=== PATIENT | male | born 1985 | race Hispanic/Latino ===

== ENCOUNTER 2018-12-05 14:51 | Emergency (ER) | payer SELFPAY ==
[2018-12-05] MEDS ORDERED: IBUPROFEN 400 MG TAB ONE (15:55)
--- NOTE | 2018-12-05 16:07 | RAD REPORT ---
EXAM DESCRIPTION: RAD - Chest Pa And Lat (2 Views) - 12/05/2018 4:01 pm CLINICAL HISTORY: Cough, fever COMPARISON: April 23, 2016 TECHNIQUE: PA and lateral views of the chest were obtained. FINDINGS: The lungs are underinflated. No peripheral mass or consolidation. Lung markings are not cl early different from comparison. Heart size is normal and central vasculature is within normal limi ts. No pleural effusion or pneumothorax seen. No acute bony finding noted. No aortic abnormality. IMPRESSION: Limited shallow inspiration film without acute cardiopulmonary finding. No significant c hange from comparison.
--- NOTE | 2018-12-05 16:36 | EDPHYS ---
Physician Documentation [facility] Name: Mohsen Emery Age: 32 yrs Sex: Male : 1985 Arrival Date: 12/05/2018 Time: 14:54 Bed 24 Private MD: ED Physician Gil Quevedo HPI: 12/05 16:00 This 32 yrs old Male presents to ER via Ambulatory with complaints of Flu pm1 Symptoms. 16:00 The patient or guardian reports cough, flu symptoms, arthralgias, myalgias. Onset: The pm1 symptoms/episode began/occurred this morning. Severity of symptoms: in the emergency department the symptoms are actually worse. Modifying factors: The symptoms are alleviated by nothing, the symptoms are aggravated by nothing. Associated signs and symptoms: Pertinent positives: fever, Pertinent negatives: chest pain, diarrhea, ear ache, rhinorrhea, sore throat, vomiting. The patient has not recently seen a physician. Patient with cough for 6 months. This morning patient with fever, body aches, and cough. Historical: - Allergies: 14:57 No Known Allergies; la1 - PMHx: 14:57 None; la1 - Immunization history:: Adult Immunizations up to date. - Social history:: Smoking status: Patient/guardian denies using tobacco. - Ebola Screening: : No symptoms or risks identified at this time. ROS: 16:00 Eyes: Negative for injury, pain, redness, and discharge, ENT: Negative for injury, pm1 pain, and discharge, Neck: Negative for injury, pain, and swelling, Cardiovascular: Negative for chest pain, palpitations, and edema. 16:00 Abdomen/GI: Negative for abdominal pain, nausea, vomiting, diarrhea, and constipation, Back: Negative for injury and pain, : Negative for injury, bleeding, discharge, and swelling, MS/Extremity: Negative for injury and deformity, Skin: Negative for injury, rash, and discoloration, Neuro: Negative for headache, weakness, numbness, tingling, and seizure. 16:00 Constitutional: Positive for body aches, fever, Negative for poor PO intake. 16:00 Respiratory: Positive for cough, Negative for shortness of breath, sputum production, wheezing. Exam: 16:00 Constitutional: This is a well developed, well nourished patient who is awake, alert, pm1 and in no acute distress. Head/Face: Normocephalic, atraumatic. Eyes: Pupils equal round and reactive to light, extra-ocular motions intact. Lids and lashes normal. Conjunctiva and sclera are non-icteric and not injected. Cornea within normal limits. Periorbital areas with no swelling, redness, or edema. ENT: Nares patent. No nasal discharge, no septal abnormalities noted. Tympanic membranes are normal and external auditory canals are clear. Oropharynx with no redness, swelling, or masses, exudates, or evidence of obstruction, uvula midline. Mucous membranes moist. Neck: Trachea midline, no thyromegaly or masses palpated, and no cervical lymphadenopathy. Supple, full range of motion without nuchal rigidity, or vertebral point tenderness. No Meningismus. Chest/axilla: Normal chest wall appearance and motion. Nontender with no deformity. No lesions are appreciated. Cardiovascular: Regular rate and rhythm with a normal S1 and S2. No gallops, murmurs, or rubs. Normal PMI, no JVD. No pulse deficits. Respiratory: Lungs have equal breath sounds bilaterally, clear to auscultation and percussion. No rales, rhonchi or wheezes noted. No increased work of breathing, no retractions or nasal flaring. Abdomen/GI: Soft, non-tender, with normal bowel sounds. No distension or tympany. No guarding or rebound. No evidence of tenderness throughout. Back: No spinal tenderness. No costovertebral tenderness. Full range of motion. Skin: Warm, dry with normal turgor. Normal color with no rashes, no lesions, and no evidence of cellulitis. MS/ Extremity: Pulses equal, no cyanosis. Neurovascular intact. Full, normal range of motion. 16:00 Neuro: Orientation: is normal, Motor: is normal, Gait: is steady, at a normal pace, without difficulty. Vital Signs: 14:57 BP 150 / 86; Pulse 125; Resp 18; Temp 101.2; Pulse Ox 98% on R/A; Weight 170.1 kg; la1 Height 5 ft. 10 in. (177.80 cm); 15:51 BP 130 / 73; Pulse 108; Resp 19; Pulse Ox 98% on R/A; ca1 16:54 BP 113 / 66; Pulse 99; Resp 19; Pulse Ox 99% on R/A; ca1 14:57 Body Mass Index 53.81 (170.10 kg, 177.80 cm) la1 MDM: 15:17 Patient medically screened. pm1 16:34 Data reviewed: vital signs. Data interpreted: Pulse oximetry: on room air is 98 %. pm1 Interpretation: normal. Counseling: I had a detailed discussion with the patient and/or guardian regarding: the historical points, exam findings, and any diagnostic results supporting the discharge/admit diagnosis, lab results, radiology results, the need for outpatient follow up, to return to the emergency department if symptoms worsen or persist or if there are any questions or concerns that arise at home. 12/05 14:59 Order name: Flu; Complete Time: 15:31 eb 12/05 15:31 Order name: Chest Pa And Lat (2 Views) XRAY; Complete Time: 16:13 pm1 Administered Medications: 15:42 Drug: Ibuprofen 800 mg Route: PO; ca1 16:54 Follow up: Response: No adverse reaction; Pain is decreased ca1 Disposition: 12/06 11:55 Co-signature as Attending Physician, Gil Quevedo MD. Disposition: 12/05/18 16:35 Discharged to Home. Impression: Acute upper respiratory infection, unspecified. - Condition is Stable. - Discharge Instructions: Upper Respiratory Infection, Adult, Viral Respiratory Infection. - Prescriptions for Guaifenesin AC 10- 100 mg/5 mL Oral Liquid - take 10 milliliter by ORAL route every 4 hours As needed; 240 milliliter. - Medication Reconciliation Form, Thank You Letter, Antibiotic Education, Prescription Opioid Use form. - Follow up: Emergency Department; When: As needed; Reason: Worsening of condition. Follow up: Private Physician; When: 2 - 3 days; Reason: Recheck today's complaints, Continuance of care, Re-evaluation by your physician. - Problem is new. - Symptoms have improved. Signatures: Dispatcher [employer] EDMS Humza Miles RN RN la1 Juan David Dumont, PRINTER ASSISTANT PRINTER ASSISTANT pm1 Gil Quevedo MD MD Acob, Lyndsey RN RN ca1 Corrections: (The following items were deleted from the chart) 12/05 16:57 16:35 12/05/2018 16:35 Discharged to Home. Impression: Acute upper respiratory ca1 infection, unspecified. Condition is Stable. Forms are Medication Reconciliation Form, Thank You Letter, Antibiotic Education, Prescription Opioid Use. Follow up: Emergency Department; When: As needed; Reason: Worsening of condition. Follow up: Private Physician; When: 2 - 3 days; Reason: Recheck today's complaints, Continuance of care, Re-evaluation by your physician. Problem is new. Symptoms have improved. pm1
--- NOTE | 2018-12-05 16:36 | ER ---
Nurse's Notes [facility] Name: Mohsen Emery Age: 32 yrs Sex: Male : 1985 Arrival Date: 12/05/2018 Time: 14:54 Bed 24 Private MD: Diagnosis: Acute upper respiratory infection, unspecified Presentation: 12/05 14:56 Presenting complaint: Patient states: cough for six months, started this morning with la1 fever, body aches. Transition of care: patient was not received from another setting of care. Onset of symptoms was December 05, 2018. Risk Assessment: Do you want to hurt yourself or someone else? Patient reports no desire to harm self or others. Initial Sepsis Screen:. Care prior to arrival: None. 14:56 Method Of Arrival: Ambulatory la1 14:56 Acuity: MARCO 3 la1 15:00 Initial Sepsis Screen: Does the patient meet any 2 criteria? No. Patient's initial ca1 sepsis screen is negative. Does the patient have a suspected source of infection? Yes: Productive cough/pneumonia. Historical: - Allergies: 14:57 No Known Allergies; la1 - PMHx: 14:57 None; la1 - Immunization history:: Adult Immunizations up to date. - Social history:: Smoking status: Patient/guardian denies using tobacco. - Ebola Screening: : No symptoms or risks identified at this time. Screenin:00 Abuse screen: Denies threats or abuse. Denies injuries from another. ca1 15:00 Nutritional screening: No deficits noted. Tuberculosis screening: No symptoms or risk ca1 factors identified. Fall Risk None identified. Assessment: 15:00 General: Appears in no apparent distress. Behavior is calm, cooperative, appropriate ca1 for age. Pain: Pain currently is 5 out of 10 on a pain scale. Pain began yesterday as a headache. Neuro: Level of Consciousness is awake, alert, obeys commands. Cardiovascular: Heart tones S1 S2 present Capillary refill < 3 seconds Patient's skin is warm and dry. Respiratory: Reports shortness of breath cough that is Airway is patent Respiratory effort is even, unlabored, Respiratory pattern is regular, symmetrical, Breath sounds are clear bilaterally. GI: No signs and/or symptoms were reported involving the gastrointestinal system. : No signs and/or symptoms were reported regarding the genitourinary system. EENT: No signs and/or symptoms were reported regarding the EENT system. Derm: Skin is intact, is healthy with good turgor, Skin is pink, warm \T\ dry. Musculoskeletal: Circulation, motion, and sensation intact. Capillary refill < 3 seconds. 16:11 Reassessment: Patient appears in no apparent distress at this time. Patient and/or ca1 family updated on plan of care and expected duration. Pain level reassessed. Patient is alert, oriented x 3, equal unlabored respirations, skin warm/dry/pink. 16:54 Reassessment: Patient appears in no apparent distress at this time. Patient and/or ca1 family updated on plan of care and expected duration. Pain level reassessed. Patient is alert, oriented x 3, equal unlabored respirations, skin warm/dry/pink. Patient states feeling better. Vital Signs: 14:57 BP 150 / 86; Pulse 125; Resp 18; Temp 101.2; Pulse Ox 98% on R/A; Weight 170.1 kg; la1 Height 5 ft. 10 in. (177.80 cm); 15:51 BP 130 / 73; Pulse 108; Resp 19; Pulse Ox 98% on R/A; ca1 16:54 BP 113 / 66; Pulse 99; Resp 19; Pulse Ox 99% on R/A; ca1 14:57 Body Mass Index 53.81 (170.10 kg, 177.80 cm) la1 ED Course: 14:54 Patient arrived in ED. as 14:57 Triage completed. la1 14:57 Arm band placed on left wrist. la1 15:00 Juan David Dumont NP is [facility]. pm1 15:00 Gil Quevedo MD is Attending Physician. pm1 15:00 Patient has correct armband on for positive identification. Bed in low position. Call ca1 light in reach. Side rails up X 1. Pulse ox on. NIBP on. Warm blanket given. 15:01 Flu Sent. jp3 15:02 Flu and/or RSV swab sent to lab. jp3 15:27 Lyndsey Cowan, RN is Primary Nurse. ca1 15:57 Chest Pa And Lat (2 Views) XRAY In Process Unspecified. EDMS 16:55 No provider procedures requiring assistance completed. Patient did not have IV access ca1 during this emergency room visit. Administered Medications: 15:42 Drug: Ibuprofen 800 mg Route: PO; ca1 16:54 Follow up: Response: No adverse reaction; Pain is decreased ca1 Outcome: 16:35 Discharge ordered by MD. pm1 16:56 Discharged to home ambulatory, with significant other. ca1 16:56 Condition: stable 16:56 Discharge instructions given to patient, Instructed on discharge instructions, follow up and referral plans. medication usage, Demonstrated understanding of instructions, follow-up care, medications, Prescriptions given X 1. 16:57 Patient left the ED. ca1 Signatures: Dispatcher [employer] EDLinda Messina Lee, RN RN la1 Juan David Dumont, EDITING COMPUTER PUBLISHER EDITING COMPUTER PUBLISHER pm1 [employer] jp3 Lyndsey Cowan RN RN ca1
[2018-12-05 17:03] VITALS: TEMP 101.2
[2018-12-05 17:05] VITALS: BP 113/66; O2SAT 99
== END 2018-12-05 16:57 | disposition home or self-care (01) ==
LOC: ER 14:51
DX: J06.9 Acute upper respiratory infection, unspecified (principal)
CPT/HCPCS: 71046; 87804; 99284

== ENCOUNTER 2021-05-14 22:16 | Emergency (ER) | payer SELFPAY ==
[2021-05-14] MEDS ORDERED: IBUPROFEN 400 MG TAB ONE (23:43)
[2021-05-15 01:12] LABS: SARS-COV-2 RT PCR POSITIVE (NEGATIVE)
--- NOTE | 2021-05-15 01:57 | ER ---
Nurse's Notes [facility] Name: Mohsen Emery Age: 35 yrs Sex: Male : 1985 Arrival Date: 05/14/2021 Time: 22:19 Bed DIS11 Private MD: Diagnosis: Pneumonia due to SARS-associated coronavirus Presentation: 05/14 23:13 Chief complaint: Patient states: SOB, Cough, Fever, Diarrhea, chest pain x 1 week. kg Coronavirus screen: Client denies travel out of the [place] in the last 14 days. At this time, unable to obtain information related to travel outside the [place] Client presents with at least one sign or symptom that may indicate coronavirus-19. Standard/surgical mask placed on the client. Provider contacted for isolation considerations. Ebola Screen: Patient negative for fever greater than or equal to 101.5 degrees Fahrenheit, and additional compatible Ebola Virus Disease symptoms Patient denies exposure to infectious person. Patient denies travel to an Ebola-affected area in the 21 days before illness onset. Initial Sepsis Screen: Does the patient meet any 2 criteria? No. Patient's initial sepsis screen is negative. Does the patient have a suspected source of infection? No. Patient's initial sepsis screen is negative. Risk Assessment: Do you want to hurt yourself or someone else? Patient reports no desire to harm self or others. Onset of symptoms was May 07, 2021. 23:13 Method Of Arrival: Wheelchair kg 23:13 Acuity: MARCO 4 kg Triage Assessment: 23:15 General: Appears in no apparent distress. Behavior is calm, cooperative, appropriate kg for age, quiet. Pain: Complains of pain in chest Pain radiates to Generalized Pain currently is 7 out of 10 on a pain scale. at worst was 10 out of 10 on a pain scale. level that patient reports is acceptable is 3 out of 10 on a pain scale. Quality of pain is described as aching, pressure, throbbing. Cardiovascular: Reports chest pain, shortness of breath. GI: Reports diarrhea. Historical: - Allergies: 23:15 No Known Allergies; kg - Home Meds: 23:15 None [Active]; kg - PMHx: 23:15 None; kg - PSHx: 23:15 Appendectomy; Cholecystectomy; kg - Immunization history:: Adult Immunizations up to date, Client reports having NOT received the Covid vaccine. - Social history:: Smoking status: Patient denies any tobacco usage or history of. Patient uses alcohol, only on a social basis. Screenin:19 Abuse screen: Denies threats or abuse. Denies injuries from another. Nutritional kg screening: No deficits noted. Tuberculosis screening: No symptoms or risk factors identified. Fall Risk None identified. Assessment: 05/15 01:24 Pain: Pain began 1 hour ago. lp1 02:03 General: Appears in no apparent distress. Neuro: No deficits noted. Respiratory: lp1 Reports shortness of breath cough that is. Vital Signs: 05/14 23:13 BP 119 / 83; Pulse 114; Resp 20; Temp 102(O); Pulse Ox 96% ; Weight 172.37 kg (R); kg Height 5 ft. 10 in. (177.80 cm); Pain 04/13; 05/15 02:18 BP 106 / 88; Pulse 100; Resp 20; Temp 98.7(O); Pulse Ox 96% on R/A; lp1 05/14 23:13 Body Mass Index 54.52 (172.37 kg, 177.80 cm) kg ED Course: 05/14 22:19 Patient arrived in ED. wm 23:15 Triage completed. kg 23:15 Arm band placed on right wrist. kg 23:19 Patient has correct armband on for positive identification. kg 23:19 Patient maintains SpO2 saturation greater than 95% on room air. kg 05/15 00:29 XRAY Chest Pa And Lat (2 Views) In Process Unspecified. EDMS 01:24 Cardiac monitoring not applicable on this patient. lp1 01:24 No provider procedures requiring assistance completed. lp1 01:41 Ryan Mosqueda PA is PHCP. jr8 01:41 Magdi Rogers MD is Attending Physician. jr8 02:03 Kristen Shook, JAYME is Primary Nurse. lp1 02:18 Patient did not have IV access during this emergency room visit. lp1 Administered Medications: 05/14 23:23 Drug: Ibuprofen 800 mg Route: PO; kg 05/15 01:26 Follow up: Response: No adverse reaction lp1 Outcome: 01:56 Discharge ordered by . jr8 02:18 Discharged to home ambulatory, with family. lp1 02:18 Condition: stable 02:18 Discharge instructions given to patient, Instructed on discharge instructions, follow up and referral plans. medication usage, Demonstrated understanding of instructions, follow-up care, medications, Prescriptions given X 2. 02:18 Patient left the ED. lp1 Signatures: Dispatcher [employer] EDMS Kristen Shook RN RN lp1 Ryan Mosqueda PA PA jr8 Carolyne Calle RN RN kg Binta Ro
--- NOTE | 2021-05-15 01:57 | EDPHYS ---
Physician Documentation [facility] Name: Mohsen Emery Age: 35 yrs Sex: Male : 1985 Arrival Date: 05/14/2021 Time: 22:19 Bed DIS11 Private MD: ED Physician Magdi Rogers HPI: 05/15 01:46 This 35 yrs old Male presents to ER via Wheelchair with complaints of Chest jr8 Pain > 30 y/o, Cough, Shortness Of Breath. 01:46 The patient or guardian reports cough, that is intermittent, described as moderate, jr8 with no sputum. Onset: The symptoms/episode began/occurred gradually, 1 week(s) ago. Severity of symptoms: At their worst the symptoms were moderate, in the emergency department the symptoms are unchanged. Modifying factors: The symptoms are alleviated by nothing, the symptoms are aggravated by exertion. Associated signs and symptoms: Pertinent positives: fever, shortness of breath, chest pain with cough. The patient has not experienced similar symptoms in the past. The patient has not recently seen a physician. Historical: - Allergies: 05/14 23:15 No Known Allergies; kg - Home Meds: 23:15 None [Active]; kg - PMHx: 23:15 None; kg - PSHx: 23:15 Appendectomy; Cholecystectomy; kg - Immunization history:: Adult Immunizations up to date, Client reports having NOT received the Covid vaccine. - Social history:: Smoking status: Patient denies any tobacco usage or history of. Patient uses alcohol, only on a social basis. ROS: 05/15 01:46 Eyes: Negative for injury, pain, redness, and discharge, ENT: Negative for injury, jr8 pain, and discharge, Neck: Negative for injury, pain, and swelling, Abdomen/GI: Negative for abdominal pain, nausea, vomiting, diarrhea, and constipation, Back: Negative for injury and pain, MS/Extremity: Negative for injury and deformity, Skin: Negative for injury, rash, and discoloration, Neuro: Negative for headache, weakness, numbness, tingling, and seizure. Constitutional: Positive for fever. Cardiovascular: Positive for chest pain, with cough, Negative for edema, orthopnea, palpitations, paroxysmal nocturnal dyspnea. Respiratory: Positive for cough, shortness of breath, Negative for sputum production, wheezing. Exam: 01:46 Constitutional: This is a well developed, well nourished patient who is awake, alert, jr8 and in no acute distress. ENT: Nares patent. No nasal discharge, no septal abnormalities noted. Tympanic membranes are normal and external auditory canals are clear. Oropharynx with no redness, swelling, or masses, exudates, or evidence of obstruction, uvula midline. Mucous membranes moist. Neck: Trachea midline, no thyromegaly or masses palpated, and no cervical lymphadenopathy. Supple, full range of motion without nuchal rigidity, or vertebral point tenderness. No Meningismus. Cardiovascular: Regular rate and rhythm with a normal S1 and S2. No gallops, murmurs, or rubs. Normal PMI, no JVD. No pulse deficits. Respiratory: Lungs have equal breath sounds bilaterally, clear to auscultation and percussion. No rales, rhonchi or wheezes noted. No increased work of breathing, no retractions or nasal flaring. Abdomen/GI: Soft, non-tender, with normal bowel sounds. No distension or tympany. No guarding or rebound. No evidence of tenderness throughout. Back: No spinal tenderness. No costovertebral tenderness. Full range of motion. Skin: Warm, dry with normal turgor. Normal color with no rashes, no lesions, and no evidence of cellulitis. MS/ Extremity: Pulses equal, no cyanosis. Neurovascular intact. Full, normal range of motion. Neuro: Awake and alert, GCS 15, oriented to person, place, time, and situation. Cranial nerves II-XII grossly intact. Motor strength 5/5 in all extremities. Sensory grossly intact. Vital Signs: 05/14 23:13 BP 119 / 83; Pulse 114; Resp 20; Temp 102(O); Pulse Ox 96% ; Weight 172.37 kg (R); kg Height 5 ft. 10 in. (177.80 cm); Pain 04/13; 05/15 02:18 BP 106 / 88; Pulse 100; Resp 20; Temp 98.7(O); Pulse Ox 96% on R/A; lp1 05/14 23:13 Body Mass Index 54.52 (172.37 kg, 177.80 cm) kg MDM: 01:42 Patient medically screened. 8 01:46 Data reviewed: vital signs, nurses notes, lab test result(s), radiologic studies, plain jr8 films, and as a result, I will discharge patient. Data interpreted: Pulse oximetry: on room air is 96 %. Interpretation: normal. Counseling: I had a detailed discussion with the patient and/or guardian regarding: the historical points, exam findings, and any diagnostic results supporting the discharge/admit diagnosis, lab results, radiology results, the need for outpatient follow up, a family practitioner, to return to the emergency department if symptoms worsen or persist or if there are any questions or concerns that arise at home. ED course: Patient's vital signs improving. Patient has been 96% room air entire time without increased respiration. Will put patient on vitamin protocol along with cough medicine and ivermectin. Patient has home pulse oximetry to monitor oxygen saturation at home. Knows to come back if his condition were to worsen or he become hypoxic.. 05/14 23:18 Order name: Flu kg 05/14 23:19 Order name: XRAY Chest Pa And Lat (2 Views) kg 05/15 01:13 Order name: COVID-19/FLU A+B; Complete Time: 01:41 EDMS 05/14 23:32 Order name: EKG - Nurse/Tech; Complete Time: 01:35 kg Administered Medications: 05/14 23:23 Drug: Ibuprofen 800 mg Route: PO; kg 05/15 01:26 Follow up: Response: No adverse reaction lp1 Disposition: 07:55 Co-signature as Attending Physician, Magdi Rogers MD I agree with the assessment and nia plan of care. Disposition Summary: 05/15/21 01:56 Discharge Ordered Location: Home [facility] Problem: new jr8 Symptoms: have improved jr8 Condition: Stable jr8 Diagnosis - Pneumonia due to SARS-associated coronavirus jr8 Followup: jr8 - With: Private Physician - When: 1 week - Reason: Recheck today's complaints, Continuance of care, Re-evaluation by your physician Discharge Instructions: - Discharge Summary Sheet jr8 - COVID-19 jr8 Forms: - Medication Reconciliation Form jr8 - Thank You Letter jr8 - Antibiotic Education jr8 - Prescription Opioid Use jr8 Prescriptions: - ivermectin 3 mg Oral tablet - take 6 tablet by ORAL route once daily for 3 days; 18 tablet; Refills: 0, jr8 Product Selection Permitted - promethazine-DM 6.25-15 mg/5 mL Oral syrup - take 5 milliliter by ORAL route every 4-6 hours As needed as needed, not to jr8 exceed 30 mL in 24 hours; 100 milliliter; Refills: 0, Product Selection Permitted Signatures: Dispatcher [employer] EDMS Magdi Rogers MD MD cha Roszak, Josh, PA PA jr8 Carolyne Calle RN RN kg Kristen Shook RN lp1 Corrections: (The following items were deleted from the chart) 05/14 2354 23:19 Influenza Screen (A ordered. EDMS EDMS 23:19 CORONAVIRUS+MR.LAB.BRZ ordered. EDMS EDMS
[2021-05-15 02:24] VITALS: O2SAT 96
[2021-05-15 02:26] VITALS: BP 106/88; TEMP 98.7
--- NOTE | 2021-05-15 07:38 | RAD REPORT ---
EXAM DESCRIPTION: RAD - Chest Pa And Lat (2 Views) - 05/15/2021 12:29 am CLINICAL HISTORY: CHEST PAIN COMPARISON: Chest Pa And Lat (2 Views) dated 12/05/2018; Chest Single View dated 04/23/2016 FINDINGS: Moderate patchy bilateral airspace disease. Decreased lung volumes. The heart size is with in normal limits.No acute osseous abnormality. No significant pleural effusions or pneumothorax. IMPRESSION: Patchy bilateral airspace disease concerning for multifocal pneumonia.
--- NOTE | 2021-05-15 13:01 | EKG ---
Test Date: 2021-05-14 Test Time: 23:45:30 Leak Detector: ALANIS MEASUREMENT RESULTS: Intervals: Rate: 113 TN: 130 QRSD: 84 QT: 324 QTc: 444 [place]: P: 19 TN: 130 QRS: -26 T: 19 INTERPRETIVE STATEMENTS: Sinus tachycardia Possible Anterior infarct, age undetermined Abnormal ECG No previous ECG available for comparison Electronically Signed On 05-15-21 12:59:20 CDT by Jose Alejandro Tran
== END 2021-05-15 02:18 | disposition home or self-care (01) ==
LOC: ER 22:16
DX: U07.1 COVID-19 (principal); J12.82 Pneumonia due to coronavirus disease 2019
CPT/HCPCS: 0240U; 71046; 93005; 99284

== ENCOUNTER 2021-05-16 14:24 | Inpatient (IN) | payer SELFPAY ==
--- NOTE | 2021-05-16 16:35 | RAD REPORT ---
EXAM DESCRIPTION: RAD - Chest Single View - 05/16/2021 4:13 pm CLINICAL HISTORY: COUGH, shortness of breath COMPARISON: Two view chest May 14 TECHNIQUE: AP portable chest image was obtained 05/16/2021 4:13 pm . FINDINGS: Lung volumes are very low accentuating interstitial and alveolar pattern. Finding is not s ignificantly different from comparison. No progression from the May 14 study. Bilateral pneumonia including COVID-19 pneumonia remain primary considerations. Heart and vasculature are normal. No measurable pleural effusion and no pneumothorax. No acute bony abnormality seen. No acute aortic findings suspected. IMPRESSION: Bilateral infiltrate pattern showing no progression from May 14 imaging.
--- NOTE | 2021-05-16 18:15 | ER ---
Nurse's Notes [facility] Name: Mohsen Emery Age: 35 yrs Sex: Male : 1985 Arrival Date: 05/16/2021 Time: 14:25 Bed 16 Private MD: Diagnosis: SARS-associated coronavirus as the cause of diseases classified elsewhere;Other specified viral diseases;Other viral pneumonia Presentation: 05/16 15:00 Chief complaint: Patient states: Tested positive for COVID yesterday, symptoms started jl7 05/05/21; decreased O2 with exertion, O2 at 89-90 while sitting and down to 77 when walking. Coronavirus screen: Client denies travel out of the [place] in the last 14 days. shortness of breath, Client presents with at least one sign or symptom that may indicate coronavirus-19. Standard/surgical mask placed on the client. Provider contacted for isolation considerations. Client reports previous positive COVID test result. Ebola Screen: No symptoms or risks identified at this time. Initial Sepsis Screen: Does the patient meet any 2 criteria? No. Patient's initial sepsis screen is negative. Does the patient have a suspected source of infection? No. Patient's initial sepsis screen is negative. Risk Assessment: Do you want to hurt yourself or someone else? Patient reports no desire to harm self or others. Onset of symptoms was May 05, 2021. Care prior to arrival: None. 15:00 Method Of Arrival: Wheelchair jl7 15:00 Acuity: MARCO 3 jl7 Historical: - Allergies: 15:02 No Known Allergies; jl7 - Home Meds: 15:02 None [Active]; jl7 - PMHx: 15:02 None; jl7 - PSHx: 15:02 Appendectomy; Cholecystectomy; jl7 - Immunization history:: Adult Immunizations not up to date, Client reports having NOT received the Covid vaccine. - Social history:: Smoking status: Patient reports the use of cigarette tobacco products, denies chronic smoking, but will smoke occasionally. Assessment: 18:10 Reassessment: Dr. Iglesias in triage room assessing pt. jl7 Vital Signs: 15:00 BP 103 / 78; Pulse 115; Resp 19; Temp 100; Pulse Ox 89% on R/A; Weight 172.37 kg; jl7 Height 5 ft. 10 in. (177.80 cm); 15:04 Pulse Ox 95% on 2 lpm NC; jl7 15:00 Body Mass Index 54.52 (172.37 kg, 177.80 cm) jl7 ED Course: 14:25 Patient arrived in ED. as 15:02 Triage completed. jl7 15:02 Arm band placed on right wrist. Patient placed in waiting room, Patient notified of jl7 wait time. 15:56 Magdi Oliveira PA is PHCP. cp 15:56 Johnson Iglesias MD is Attending Physician. cp 16:12 Chest Single View In Process Unspecified. EDMS 18:13 Natanael Millard is Hospitalizing Provider. kdr 18:20 Inserted saline lock: 20 gauge in right antecubital area, using aseptic technique. mt Blood collected. 05/17 07:46 Christianne Carrillo RN is Primary Nurse. tr6 17:25 Inserted saline lock: 20 gauge in left forearm, using aseptic technique. dh3 05/18 07:18 Primary Nurse role handed off by Christianne Carrillo RN eb 07:33 Aneudy Moise, JAYME is Primary Nurse. bp 19:27 Primary Nurse role handed off by Aneudy Moise, JAYME mw2 Administered Medications: 07:34 Drug: Decadron - Dexamethasone 10 mg {Note: GIVEN ON PREVIOUS SHIFT.} Route: IVP; Site: bp Other; 07:38 Follow up: Response: No adverse reaction bp 07:35 Drug: Ivermectin 12 mg {Note: GIVEN ON PREVIUOS SHIFT.} Route: PO; bp 07:37 Follow up: Response: No adverse reaction bp 07:35 Drug: NS 0.9% 1000 ml {Note: GIVEN ON PREVIOUS SHIFT.} Route: IV; Rate: 1 bolus; Site: bp Other; 07:36 Follow up: IV Status: Completed infusion; IV Intake: 1000ml bp Intake: 07:36 IV: 1000ml; Total: 1000ml. bp Outcome: 05/16 18:14 Decision to Hospitalize by Provider. kdr 05/18 20:57 Patient left the ED. mw2 Signatures: Dispatcher [employer] EDMS Johnson Iglesias MD MD kdr Linda Sidhu as Magdi Oliveira PA PA cp Leal, Jahala, RN RN jl7 Celine Hogue mt, Deanna 3 Aneudy Moise, RN RN Joao Neil 2 Priscilla Daley Tiffany RN RN tr6 Corrections: (The following items were deleted from the chart) 05/16 18:33 18:32 Inserted saline lock: 20 gauge in right antecubital area, using aseptic mt technique. Blood collected. oh
--- NOTE | 2021-05-16 18:15 | EDPHYS ---
Physician Documentation [facility] Name: Mohsen Emery Age: 35 yrs Sex: Male : 1985 Arrival Date: 05/16/2021 Time: 14:25 Bed 16 Private MD: ED Physician Johnson Iglesias HPI: 05/16 18:48 This 35 yrs old Male presents to ER via Wheelchair with complaints of kdr Shortness Of Breath - covid+. 18:09 First symptomatic on the first of May.. kdr 18:48 The patient has shortness of breath at rest, with light activity. Onset: The kdr symptoms/episode began/occurred gradually, 10 day(s) ago. Duration: The symptoms are continuous, and are steadily getting worse. The patient's shortness of breath is aggravated by coughing, eating, exertion, light activity, talking, walking. Associated signs and symptoms: Pertinent positives: non-productive cough, fever, nausea. Severity of symptoms: At their worst the symptoms were moderate in the emergency department the symptoms are unchanged are worse markedly. The patient has not experienced similar symptoms in the past. The patient has been recently seen at the [facility] Emergency Department, this week, for similar complaints labs were performed, X-rays were performed. Historical: - Allergies: 15:02 No Known Allergies; jl7 - Home Meds: 15:02 None [Active]; jl7 - PMHx: 15:02 None; jl7 - PSHx: 15:02 Appendectomy; Cholecystectomy; jl7 - Immunization history:: Adult Immunizations not up to date, Client reports having NOT received the Covid vaccine. - Social history:: Smoking status: Patient reports the use of cigarette tobacco products, denies chronic smoking, but will smoke occasionally. ROS: 18:48 Constitutional: Negative for fever, chills, and weight loss. kdr 18:48 Cardiovascular: Negative for chest pain, palpitations, and edema, Abdomen/GI: Negative for abdominal pain, nausea, vomiting, diarrhea, and constipation, Back: Negative for injury and pain, : Negative for injury, bleeding, discharge, and swelling, MS/Extremity: Negative for injury and deformity, Skin: Negative for injury, rash, and discoloration, Neuro: Negative for headache, weakness, numbness, tingling, and seizure activity. Psych: Negative for depression, anxiety, suicide ideation, homicidal ideation, and hallucinations, Allergy/Immunology: Negative for hives, rash, and allergies, Endocrine: Negative for neck swelling, polydipsia, polyuria, polyphagia, and marked weight changes, Hematologic/Lymphatic: Negative for swollen nodes, abnormal bleeding, and unusual bruising. 18:48 Respiratory: Positive for cough, dyspnea on exertion, shortness of breath, wheezing. 18:48 Abdomen/GI: Positive for nausea. Exam: 18:48 Constitutional: This is a well developed, well nourished patient who is awake, alert, kdr and in no acute distress. Head/Face: Normocephalic, atraumatic. Eyes: Pupils equal round and reactive to light, extra-ocular motions intact. Lids and lashes normal. Conjunctiva and sclera are non-icteric and not injected. Cornea within normal limits. Periorbital areas with no swelling, redness, or edema. 18:50 ENT: External ear(s): are unremarkable, Nose: is normal, Mouth: Lips: moist, Oral cp mucosa: pink and intact, moist, Posterior pharynx: Airway: no evidence of obstruction, patent. 18:50 Neck: ROM/movement: is normal, is supple, no meningismus, no nuchal rigidity. 18:50 Chest/axilla: Inspection: normal, Palpation: is normal, no crepitus, no tenderness. 18:50 Cardiovascular: Rate: tachycardic, Rhythm: regular, Edema: is not appreciated, JVD: is not appreciated. 18:50 Respiratory: the patient does not display signs of respiratory distress, Respirations: labored breathing, is not present, shallow respirations, that is mild, Breath sounds: decreased breath sounds, that are mild, throughout, wheezing: is not appreciated. 18:50 Abdomen/GI: Inspection: abdomen appears normal, Palpation: abdomen is soft and non-tender, in all quadrants. 18:50 Back: pain, is absent, ROM is normal. 18:50 Skin: no rash present. 18:50 Neuro: Orientation: to person, place \T\ time. Mentation: is normal, Cerebellar function: is grossly normal, Motor: moves all fours, strength is normal, Sensation: is normal. Vital Signs: 15:00 BP 103 / 78; Pulse 115; Resp 19; Temp 100; Pulse Ox 89% on R/A; Weight 172.37 kg; jl7 Height 5 ft. 10 in. (177.80 cm); 15:04 Pulse Ox 95% on 2 lpm NC; jl7 15:00 Body Mass Index 54.52 (172.37 kg, 177.80 cm) [facility] MDM: 18:14 Patient medically screened. kdr 18:48 Differential diagnosis: Bronchitis pneumonia, Pulmonary Embolism reactive airway kdr disease, Sepsis. Data reviewed: vital signs, nurses notes, lab test result(s), radiologic studies. Counseling: I had a detailed discussion with the patient and/or guardian regarding: the historical points, exam findings, and any diagnostic results supporting the discharge/admit diagnosis, lab results, radiology results, the need for further work-up and treatment in the hospital. Response to treatment: the patient's symptoms have mildly improved after treatment. 05/16 18:15 Order name: BMP kdr 08/ 18:15 Order name: Blood Culture Adult (2) kdr 05/16 18:15 Order name: C-Reactive Protein kdr 05/16 18:15 Order name: CBC with Diff kdr 05/16 18:15 Order name: D-Dimer kdr 05/16 18:15 Order name: Ferritin kdr 08 18:15 Order name: Flu kdr 08/ 18:15 Order name: LFT's kdr / 18:15 Order name: Lactate kdr 08 18:15 Order name: Lipase kdr 08/ 18:15 Order name: PT-INR; Complete Time: 18:59 kdr / 18:15 Order name: Procalcitonin kdr 05/16 18:15 Order name: Ptt, Activated; Complete Time: 18:59 kdr 05/16 18:15 Order name: Strep kdr 08/ 18:15 Order name: Troponin (emerg Dept Use Only) kdr 05/16 18:15 Order name: Urine Microscopic Only kdr 05/16 18:16 Order name: Basic Metabolic Panel EDMS 05/16 18:16 Order name: Blood Culture EDMS 05/16 18:16 Order name: C-Reactive Protein EDMS 05/16 18:16 Order name: CBC with Automated Diff EDMS 05/16 18:16 Order name: D-Dimer; Complete Time: 18:59 EDMS 05/16 18:16 Order name: Ferritin EDMS 05/16 18:16 Order name: Influenza Screen (A EDMS 05/16 18:16 Order name: Liver (Hepatic) Function EDMS 05/16 19:51 Order name: NT PRO-BNP EDMS 05/16 19:52 Order name: C-Reactive Protein EDMS 05/16 19:52 Order name: C-Reactive Protein EDMS 05/16 19:52 Order name: CBC with Automated Diff EDMS 05/16 19:52 Order name: CBC with Automated Diff EDMS 05/16 19:52 Order name: Comprehensive Metabolic Panel EDMS 05/16 19:52 Order name: Comprehensive Metabolic Panel EDMS 05/16 19:52 Order name: Ferritin EDMS 05/16 19:52 Order name: Ferritin EDMS 05/16 19:52 Order name: Lactate EDMS 05/16 19:52 Order name: Lactate EDMS 05/16 19:52 Order name: Lipid Profile EDMS 05/16 19:52 Order name: Lipid Profile EDMS 05/16 19:52 Order name: Magnesium EDMS 05/16 19:52 Order name: Magnesium EDMS 05/16 19:52 Order name: Phosphorus EDMS 05/16 19:52 Order name: Phosphorus EDMS 05/16 19:52 Order name: Procalcitonin EDMS 05/16 19:52 Order name: Procalcitonin EDMS 05/16 19:52 Order name: T4 Free EDMS 05/16 19:52 Order name: T4 Free EDMS 05/16 19:52 Order name: Thyroid Stimulating Hormone EDMS 05/16 19:52 Order name: Thyroid Stimulating Hormone EDMS 05/16 19:52 Order name: Hemoglobin A1c EDMS 05/16 19:52 Order name: Hemoglobin A1c EDMS 05/16 20:04 Order name: CBC Smear Scan EDMS 05/16 20:21 Order name: Glucose, Ancillary Testing EDMS 05/17 08:52 Order name: Glucose, Ancillary Testing EDMS 05/17 13:07 Order name: Glucose, Ancillary Testing EDMS 05/17 18:26 Order name: Glucose, Ancillary Testing EDMS 05/17 20:23 Order name: Glucose, Ancillary Testing EDMS 05/18 04:58 Order name: CBC with Automated Diff EDMS 05/18 05:22 Order name: Comprehensive Metabolic Panel EDMS 05/18 05:22 Order name: C-Reactive Protein EDMS 05/18 05:22 Order name: Magnesium EDMS 05/18 05:22 Order name: Ferritin EDMS 05/18 10:04 Order name: Glucose, Ancillary Testing EDMS 05/18 13:10 Order name: Glucose, Ancillary Testing EDAR 05/16 16:08 Order name: Chest Single View; Complete Time: 18:08 EDMS 05/16 18:15 Order name: EKG; Complete Time: 18:16 kdr 05/16 18:15 Order name: Cardiac monitoring kdr 05/16 18:15 Order name: Droplet/Contact Precautions kdr 05/16 18:15 Order name: EKG - Nurse/Tech kdr 05/16 18:15 Order name: Steen kdr 05/16 18:15 Order name: IV Start; Complete Time: 18:32 kdr 05/16 18:15 Order name: Labs collected and sent; Complete Time: 18:32 kdr 05/16 18:15 Order name: O2 Per Protocol; Complete Time: 18:32 kdr 05/16 18:15 Order name: O2 Sat Monitoring; Complete Time: 18:32 [facility] 05/16 19:23 Order name: CONS Physician Consult EDAR 05/16 19:51 Order name: Consistent Carb (ADA) [address] EDAR 05/16 19:52 Order name: Respiratory Therapy Consult EDAR 05/17 10:36 Order name: US EDAR 05/18 09:01 Order name: RAD EDAR 05/18 18:01 Order name: Glucose, Ancillary Testing EDAR 05/18 19:53 Order name: Glucose, Ancillary Testing EDAR Administered Medications: 05/18 07:34 Drug: Decadron - Dexamethasone 10 mg {Note: GIVEN ON PREVIOUS SHIFT.} Route: IVP; Site: bp Other; 07:38 Follow up: Response: No adverse reaction bp 07:35 Drug: Ivermectin 12 mg {Note: GIVEN ON PREVIUOS SHIFT.} Route: PO; bp 07:37 Follow up: Response: No adverse reaction bp 07:35 Drug: NS 0.9% 1000 ml {Note: GIVEN ON PREVIOUS SHIFT.} Route: IV; Rate: 1 bolus; Site: bp Other; 07:36 Follow up: IV Status: Completed infusion; IV Intake: 1000ml bp Disposition: 05/16 18:52 Co-signature as Attending Physician, Johnson Iglesias MD I agree with the assessment and kdr plan of care. Disposition Summary: 05/16/21 18:14 Hospitalization Ordered Hospitalization Status: Inpatient Admission kdr Provider: Natanael Millard Condition: Fair kdr Problem: an ongoing problem kdr Symptoms: have improved kdr Bed/Room Type: Standard kdr Location: Telemetry/MedSurg (Inpatient)(05/18/21 18:54) dw Room Assignment: 402(05/18/21 18:54) dw Diagnosis - SARS-associated coronavirus as the cause of diseases classified elsewhere kdr - Other specified viral diseases kdr - Other viral pneumonia kdr Forms: - Medication Reconciliation Form kdr - SBAR form kdr Signatures: Dispatcher [employer] EDMS Sandra Contreras RN RN dw Johnson Iglesias MD MD kdr Tosha Pires RN RN tl1 Magdi Oliveira PA PA Davon Kennedy RN RN jl7 Aneudy Moise RN RN bp Corrections: (The following items were deleted from the chart) 16:08 15:57 Chest Pa And Lat (2 Views)+RAD.RAD.BRZ ordered. EDAR EDMS 16:48 16:15 This 35 yrs old Male presents to ER via Wheelchair with complaints of cp Shortness Of Breath - covid+. cp 16:48 16:15 The patient has shortness of breath at rest, cp cp 16:48 16:15 Onset: The symptoms/episode began/occurred gradually, cp cp 16:48 16:15 Duration: The symptoms are continuous, and are steadily getting worse, cp cp 16:48 16:20 Constitutional: Negative for body aches, chills, fever, poor PO intake, cp cp 16:48 16:20 Cardiovascular: Positive for chest pain, with cough, Negative for edema, cp palpitations, cp 16:48 16:20 Respiratory: Positive for cough, with no reported sputum, shortness of breath, at cp rest. Negative for wheezing, cp 16:48 16:20 Abdomen/GI: Positive for nausea, diarrhea, Negative for abdominal pain, vomiting, cp constipation, cp 16:48 16:20 Eyes: Negative for injury, pain, redness, and discharge, cp cp 16:48 16:25 Constitutional: The patient appears in no acute distress, alert, awake, cp non-diaphoretic, non-toxic, well developed, well nourished, obese, cp 16:48 16:25 Head/Face: Normocephalic, atraumatic. cp cp 18:19 18:16 Chest Single View+RAD.RAD.BRZ ordered. EDMS EDMS 22:52 18:14 Telemetry/MedSurg (Inpatient) kdr tl1 22:52 18:14 kdr tl1 05/18 18:54 08/12 22:52 BR ER HOLD tl1 dw 05/18 18:54 08 22:52 ERHOLD- tl1 dw
[2021-05-16 18:40] LABS: Basophils % 0.2 % (0-1.3); Lymphocytes % 18.3 % (15.3-44.8); MPV 9.1 fL (7.6-11.3); RBC Red Blood Cell Count 5.71 M/uL (4.33-5.43)
[2021-05-16 18:47] LABS: Protime INR 1.1
[2021-05-16 19:08] LABS: ALT/SGPT 98 U/L (12-78); AST/SGOT 95 U/L (15-37); Albumin 2.9 g/dL (3.4-5.0); Alkaline Phosphatase 87 U/L (45-117); BUN Blood Urea Nitrogen 17 mg/dL (7-18); Bicarbonate 27 mmol/L (21-32); Bilirubin Direct 0.2 mg/dL (0-0.2); Bilirubin Total 0.5 mg/dL (0.2-1.0); Ferritin 2672.7 ng/mL (26-388); Glucose Level 311 mg/dL (74-106); Lipase 164 U/L (73-393); Potassium 4.1 mmol/L (3.5-5.1); Protein, Total 9.1 g/dL (6.4-8.2); Sodium Level 127 mmol/L (136-145); Troponin (Emerg Dept Use Only) < 0.02 ng/mL (0.0-0.045)
[2021-05-16] MEDS ORDERED: ONDANSETRON 4 MG/2 ML VIAL IV PRN (19:48)
[2021-05-16] MEDS ORDERED: ALBUTEROL 2.5 MG/3 ML NEB SOL NEB PRN (19:48)
[2021-05-16] MEDS ORDERED: MORPHINE 2 MG/ML SYR IV PRN (19:48)
[2021-05-16] MEDS ORDERED: ACETAMINOPHEN 500 MG TAB PO PRN (19:48)
[2021-05-16] MEDS ORDERED: NA CHLORIDE 0.9% 500 ML IV ONE (19:48)
[2021-05-16 20:03] LABS: Platelet Estimate DECR; White Blood Cell Scan OK (OK)
[2021-05-16 20:04] LABS: Blood Morphology Comment NOT SEEN (NOT SEEN)
[2021-05-16] MEDS ORDERED: FAMOTIDINE 20 MG TAB PO SCH (21:00)
[2021-05-16] MEDS: INSULIN -REGULAR HUMAN 50 UNIT/0.5 ML ML SQ SCH (21:00)
[2021-05-16] MEDS ORDERED: METHYLPREDNISOLONE 125 MG INJ IV SCH (21:00)
[2021-05-16] MEDS: ASCORBIC ACID 500 MG TABLET PO SCH (21:00)
[2021-05-16] MEDS ORDERED: METHYLPREDNISOLONE 125 MG INJ ONE (21:07)
[2021-05-16] MEDS ORDERED: ASCORBIC ACID 500 MG TABLET ONE (21:07)
[2021-05-16] MEDS ORDERED: FAMOTIDINE 20 MG TAB ONE (21:07)
[2021-05-16] MEDS ORDERED: NA CHLORIDE 0.9% 500 ML ONE (21:07)
[2021-05-16] MEDS ORDERED: INSULIN -REGULAR HUMAN 50 UNIT/0.5 ML ML ONE (21:24)
[2021-05-16] MEDS ORDERED: MORPHINE 2 MG/ML SYR ONE (21:56)
--- NOTE | 2021-05-16 22:51 | P.HP ---
Certification for Inpatient Patient admitted to: Inpatient With expected LOS: >2 Midnights Patient will require the following post-hospital care: None Practitioner: I am a practitioner with admitting privileges, knowledge of patient current condition, hospital course, and medical plan of care. Services: Services provided to patient in accordance with Admission requirements found in Title 42 Section 412.3 of the Code of Federal Regulations Patient History Date of Service: 05/16/21 Reason for admission: covid pneumonia History of Present Illness: Mr. Emery is a 35 yo M who presents with cough and SOB. He tested positive for COVID on 05/14. Symptoms began on 05/05. He reports pleuritic pain and wheezing as well as anorexia and decreased fluid intake. Denies diarrhea. Sats in the 80s on room air on arrival, now stable on NC. Plt 30, Na 127, Cl 95. Cr 1.42, GFR 56. Glu 311. Ferritin 2672. AST 95, ALT 98. CRP 147. Alb 2.9. Procal 0.18. CXR consistent with covid pneumonia. Allergies No Known Allergies Allergy (Verified 04/23/16 14:34) Home Medications: Hydrocodone 7.5/APAP 325 [[place] 7.5/325 mg] 1 tab PO Q4HP PRN #30 tab 04/25/16 - Past Medical/Surgical History Past Medical History: Patient denies medical history -: appendectomy -: cholecystectomy - Family History Family History: Reviewed- Non-Contributory - Family History Mother Notes: none Father Notes: none - Social History Smoking Status: Former smoker Alcohol use: Yes CD- Drugs: No Caffeine use: No Place of Residence: Home Review of Systems Respiratory: Cough, Shortness of Breath, Pleuritic Pain, Wheezing Physical Examination - Physical Exam General: Alert, In no apparent distress HEENT: Atraumatic, PERRLA, Mucous membr. moist/pink, EOMI, Sclerae nonicteric Neck: Supple, 2+ carotid pulse no bruit, No LAD, Without JVD or thyroid abnormality Respiratory: Diminished, Rhonchi/gurgles Cardiovascular: Regular rate/rhythm, Normal S1 S2 Gastrointestinal: Normal bowel sounds, No tenderness Musculoskeletal: No tenderness Integumentary: No rashes Neurological: Normal speech, Normal strength at 5/5 x4 extr, Normal tone, Normal affect Lymphatics: No axilla or inguinal lymphadenopathy - Studies Laboratory Data (last 24 hrs) 05/16/21 18:20: PT 12.7 H, INR 1.10, APTT 33.5 05/16/21 18:20: WBC 5.30, Hgb 17.2, Hct 51.0 H, Plt Count 130 L 05/16/21 18:20: Sodium 127 L, Potassium 4.1, BUN 17, Creatinine 1.42 H, Glucose 311 H, Total Bilirubin 0.5, AST 95 H, ALT 98 H, Alkaline Phosphatase 87, Lipase 164 Assessment and Plan - Problems (Diagnosis) (1) Pneumonia due to COVID-19 virus Current Visit: Yes Status: Acute (2) WARD (acute kidney injury) Current Visit: Yes Status: Acute (3) Dehydration Current Visit: Yes Status: Acute - Plan pulm consulted, RT consulted evaluation for home O2 and daily room air sats continue IV steroids, covid supplementation, and ivermectin daily crp, ferritin, procal given 500 cc bolus in the ED, repeat BMP in the AM sliding scale insulin, accuchecks, A1c pending DVT ppx Discharge Plan: Home Plan to discharge in: 72 Hours - Advance Directives Does patient have a Living Will: No Does patient have a Durable POA for Healthcare: No - Code Status/Comfort Care Code Status Assessed: Yes (full code ) Critical Care: No Time Spent Managing Pts Care (In Minutes): 70
[2021-05-17] MEDS: BENZONATATE 100 MG CAP PO PRN (02:19)
[2021-05-17] MEDS: MELATONIN 5 MG TABLET PO PRN (02:19)
[2021-05-17] MEDS ORDERED: BENZONATATE 100 MG CAP PO ONE (02:41)
[2021-05-17] MEDS ORDERED: MELATONIN 5 MG TABLET PO ONE (02:41)
[2021-05-17 04:10] VITALS: BMI 54.3
[2021-05-17 05:29] LABS: Absolute Lymphocytes (CBC) 0.8 K/uL (0.7-4.9); Basophils % 0.5 % (0-1.3); Hematocrit 47.7 % (39.6-49.0); Lymphocytes % 31.5 % (15.3-44.8); RBC Red Blood Cell Count 5.35 M/uL (4.33-5.43)
[2021-05-17 06:07] LABS: Albumin 2.5 g/dL (3.4-5.0); Bilirubin Total 0.5 mg/dL (0.2-1.0); Ferritin 2320.6 ng/mL (26-388); Magnesium 1.9 mg/dL (1.8-2.4); Phosphorus 3.8 mg/dL (2.5-4.9); Potassium 4.8 mmol/L (3.5-5.1); Thyroid Stimulating Hormone 0.411 uIU/mL (0.360-3.740)
--- NOTE | 2021-05-17 07:55 | P.PN ---
Subjective Date of Service: 05/17/21 Primary Care Provider: none Chief Complaint: covid pneumonia Subjective: Other (Patient still reports shortness of breath with exertion.) Physical Examination - Vital Signs Temperature: 98 F Blood Pressure: 104/72 Pulse: 88 Respirations: 20 Pulse Ox (%): 90 - Studies Laboratory Data (last 24 hrs) 05/16/21 18:20: PT 12.7 H, INR 1.10, APTT 33.5 05/16/21 18:20: WBC 5.30, Hgb 17.2, Hct 51.0 H, Plt Count 130 L 05/16/21 18:20: Sodium 127 L, Potassium 4.1, BUN 17, Creatinine 1.42 H, Glucose 311 H, Total Bilirubin 0.5, AST 95 H, ALT 98 H, Alkaline Phosphatase 87, Lipase 164 Assessment & Plan Discharge Plan: Home Plan to discharge in: 72 Hours Physician Review Additional Text: COVID: Positive, Unvaccinated CXR: COMPARISON: Two view chest May 14 TECHNIQUE: AP portable chest image was obtained 05/16/2021 4:13 pm . FINDINGS: Lung volumes are very low accentuating interstitial and alveolar pattern. Finding is not significantly different from comparison. No progression from the May 14 study. Bilateral pneumonia including COVID-19 pneumonia remain primary considerations. Heart and vasculature are normal. No measurable pleural effusion and no pneumothorax. No acute bony abnormality seen. No acute aortic findings suspect ed. IMPRESSION: Bilateral infiltrate pattern showing no progression from May 14 imaging. Physical Exam: General: Alert, In no apparent distress HEENT: Atraumatic, PERRLA, Mucous membr. moist/pink, EOMI, Sclerae nonicteric Neck: Neck supple Respiratory: Diminished, Rhonchi/gurgles, currently on 4 L per nasal cannula Cardiovascular: Regular rate/rhythm, Normal S1 S2 Gastrointestinal: Normal bowel sounds, No tenderness Musculoskeletal: No tenderness Integumentary: No rashes Neurological: Normal speech, Normal strength at 5/5 x4 extr, Normal tone, Normal affect Lymphatics: No axilla or inguinal lymphadenopathy Impression: Dyspnea secondary to bilateral Covid pneumonia, unvaccinated Acute renal injury likely dehydration Elevated liver function suspect fatty liver New diabetes mellitus type 2 Morbid obesity, BMI 54.4 Chronic pain Plan: Dyspnea secondary to bilateral Covid pneumonia, unvaccinated: Patient admitted. Currently on 4 L per nasal cannula. Continue with IV steroids, ivermectin, and supplementation. Will adjust IV steroid. Patient likely not a candidate for baricitinib due to elevated liver function. Will check liver ultrasound. Continue to monitor liver function. Will discuss with pulmonology who is been consulted. Encourage incentive spirometer. Continue to wean off oxygen. Respiratory consulted to help with this. Will provide medication for cough. Encourage ambulation, proning. Will continue to monitor closely. Will monitor CRP and ferritin. Will monitor liver function tests likely home in the next 3 days. Acute renal injury likely dehydration: Encourage oral intake. Renal function improved. Will monitor this closely. Elevated liver function suspect fatty liver: Will monitor liver function. Will check liver ultrasound. New diabetes mellitus type 2: Hemoglobin A1c 9.0. Will start Metformin. We will also start basal insulin for better diabetic control. Continue sliding scale. Morbid obesity, BMI 54.4: Will discuss lifestyle modification education. Chronic pain: Will provide options for medication CODE STATUS: Full code DVT prophylaxis: Lovenox Advanced care [id number] minutes: Home at discharge Time Spent Managing Pts Care (In Minutes): 55
[2021-05-17] MEDS ORDERED: D50W 25 GM/50 ML SYRINGE IV PRN (07:58)
[2021-05-17] MEDS ORDERED: GLUCAGON 1 MG/VIAL IM PRN (07:58)
[2021-05-17] MEDS: IVERMECTIN 3 MG TABLET PO SCH (08:00)
[2021-05-17] MEDS: METFORMIN HCL 500 MG TAB PO SCH ×2 (08:00→17:00)
[2021-05-17] MEDS ORDERED: METHYLPREDNISOLONE 40 MG INJ ONE ×3 (08:32→20:44)
[2021-05-17] MEDS ORDERED: ZINC SULFATE 220 MG CAP ONE (08:32)
[2021-05-17] MEDS ORDERED: VITAMIN D 1000 UNIT TAB ONE (08:32)
[2021-05-17] MEDS ORDERED: ASCORBIC ACID 500 MG TABLET ONE ×3 (08:32→20:43)
[2021-05-17] MEDS ORDERED: FAMOTIDINE 20 MG TAB ONE ×2 (08:32→20:44)
[2021-05-17] MEDS ORDERED: THIAMINE HCL 100 MG TABLET ONE (08:32)
[2021-05-17] MEDS: ZINC SULFATE 220 MG CAP PO SCH (09:00)
[2021-05-17] MEDS: ASPIRIN EC 81 MG TAB PO SCH (09:00)
[2021-05-17] MEDS: FAMOTIDINE 20 MG TAB PO SCH ×2 (09:00→21:00)
[2021-05-17] MEDS: METHYLPREDNISOLONE 125 MG INJ IV SCH ×3 (09:00→21:00)
[2021-05-17] MEDS: THIAMINE HCL 100 MG TABLET PO SCH (09:00)
[2021-05-17] MEDS: VITAMIN D 1000 UNIT TAB PO SCH (09:00)
[2021-05-17] MEDS: ASCORBIC ACID 500 MG TABLET PO SCH ×4 (09:00→21:00)
[2021-05-17] MEDS: INSULIN -REGULAR HUMAN 50 UNIT/0.5 ML ML SQ SCH ×4 (09:05→21:00)
[2021-05-17] MEDS: INSULIN GLARGINE 100 UNITS/ML SQ SCH ×2 (09:05→21:00)
[2021-05-17] MEDS ORDERED: INSULIN GLARGINE 100 UNITS/ML SQ ONE ×2 (09:14→20:44)
[2021-05-17] MEDS ORDERED: INSULIN -REGULAR HUMAN 50 UNIT/0.5 ML ML ONE ×4 (09:16→20:46)
[2021-05-17] MEDS ORDERED: ASPIRIN EC 81 MG TAB PO ONE (09:17)
[2021-05-17] MEDS ORDERED: METFORMIN HCL 500 MG TAB ONE ×2 (09:17→18:49)
--- NOTE | 2021-05-17 10:35 | RAD REPORT ---
EXAM DESCRIPTION: US - Liver Only - 05/17/2021 10:19 am CLINICAL HISTORY: elevated liver function, suspect fatty liver COMPARISON: No comparisons FINDINGS: Extensive bowel gas is present which limits evaluation of the liver parenchyma.Probably, m ild fatty liver is present.The spleen appears mildly enlarged measuring 15 cm. IMPRESSION: Combination of patient body habitus sac significant bowel-gas made visualization of the liver parenchyma quite limited. Consider cross-sectional imaging with CT or MRI of the liver for fur ther evaluation.
[2021-05-17] MEDS: ENOXAPARIN 40 MG/0.4 ML SQ SCH (17:00)
[2021-05-17] MEDS ORDERED: ENOXAPARIN 40 MG/0.4 ML SQ ONE (18:49)
--- NOTE | 2021-05-17 22:14 | P.CNS ---
Date of Consult: 05/17/21 Reason for Consult: COVID penumonia Primary Care Provider: none Chief Complaint: covid pneumonia History of Present Illness: AGe 36 AW COUGh and SOB. mild COVID penumonia Allergies No Known Allergies Allergy (Verified 04/23/16 14:34) Home Medications: Hydrocodone 7.5/APAP 325 [[place] 7.5/325 mg] 1 tab PO Q4HP PRN #30 tab 04/25/16 - Past Medical/Surgical History -: appendectomy -: cholecystectomy - Family History Mother Notes: none Father Notes: none - Social History Smoking Status: Unknown if ever smoked Alcohol use: Yes CD- Drugs: No Caffeine use: No Place of Residence: Home Review of Systems Respiratory: Shortness of Breath Physical Examination Temp Pulse Resp BP Pulse Ox 98.9 F 89 19 103/54 L 91 05/17/21 20:00 05/17/21 20:00 05/17/21 20:00 05/17/21 20:00 05/17/21 20:00 General: Alert, In no apparent distress, Oriented x3 - Problems (1) Pneumonia due to COVID-19 virus Current Visit: Yes Status: Acute Plan: Dx COVID penumonia/ mild hypoxemia/ Fatty liver VS COVID damageto liver/CRP elevated/ Poss DC am or will qualify for Barcitinib am/CXRY minimla changes
[2021-05-18 04:44] LABS: Absolute Lymphocytes (CBC) 1.1 K/uL (0.7-4.9); Basophils % 0.2 % (0-1.3); Hematocrit 46.7 % (39.6-49.0); Lymphocytes % 19.4 % (15.3-44.8); MPV 9.3 fL (7.6-11.3); RBC Red Blood Cell Count 5.23 M/uL (4.33-5.43)
[2021-05-18 05:21] LABS: Albumin 2.5 g/dL (3.4-5.0); Bilirubin Total 0.5 mg/dL (0.2-1.0); C-Reactive Protein 80.1 mg/L (<3.00); Ferritin 2071.1 ng/mL (26-388); Magnesium 2.1 mg/dL (1.8-2.4); Potassium 4.4 mmol/L (3.5-5.1); Protein, Total 7.8 g/dL (6.4-8.2)
[2021-05-18] MEDS ORDERED: BENZONATATE 100 MG CAP PO ONE (05:25)
[2021-05-18] MEDS: BENZONATATE 100 MG CAP PO PRN (05:46)
--- NOTE | 2021-05-18 06:08 | P.PN ---
Subjective Date of Service: 05/18/21 Primary Care Provider: none Chief Complaint: covid pneumonia Subjective: Other (Patient reports improvement but now requiring 6 L per nasal cannula.) Physical Examination - Vital Signs Temperature: 97.8 F Blood Pressure: 116/62 Pulse: 89 Respirations: 23 Pulse Ox (%): 88 Assessment & Plan Discharge Plan: Home Plan to discharge in: 72 Hours Physician Review Additional Text: COVID: Positive, Unvaccinated CXR: COMPARISON: Two view chest May 14 TECHNIQUE: AP portable chest image was obtained 05/16/2021 4:13 pm . FINDINGS: Lung volumes are very low accentuating interstitial and alveolar pattern. Finding is not significantly different from comparison. No progression from the May 14 study. Bilateral pneumonia including COVID-19 pneumonia remain primary considerations. Heart and vasculature are normal. No measurable pleural effusion and no pneumothorax. No acute bony abnormality seen. No acute aortic findings suspected. IMPRESSION: Bilateral infiltrate pattern showing no progression from May 14 imaging. Liver US: COMPARISON: No comparisons FINDINGS: Extensive bowel gas is present which limits evaluation of the liver parenchyma.Probably, mild fatty liver is present.The spleen appears mildly enlarged measuring 15 cm. IMPRESSION: Combination of patient body habitus sac significant bowel-gas made visualization of the liver parenchyma quite limited. Physical Exam: General: Alert, In no apparent distress HEENT: Atraumatic. Mucous membranes moist. Neck: Neck supple Respiratory: Better air movement than yesterday. Now on 6 L per nasal cannula. Cardiovascular: Regular rate/rhythm, Normal S1 S2 Gastrointestinal: Normal bowel sounds, No tenderness Musculoskeletal: No tenderness Integumentary: No rashes Neurological: Normal speech, Normal strength at 5/5 x4 extr, Normal tone, Normal affect Lymphatics: No axilla or inguinal lymphadenopathy Impression: Dyspnea secondary to bilateral Covid pneumonia, unvaccinated Acute renal injury likely dehydration Elevated liver function with fatty liver New diabetes mellitus type 2 Morbid obesity, BMI 54.4 Chronic pain Plan: Dyspnea secondary to bilateral Covid pneumonia, unvaccinated: Patient remained stable. Increased oxygen noted. Now on 6 L per nasal cannula. Ferritin down to 2000. CRP down to 80. Continue with IV steroids, ivermectin, and supplementation. Patient likely not a candidate for baricitinib due to elevated liver function. Liver ultrasound was poor due to extensive gas. Fatty liver noted. Continue to monitor liver function. Will discuss with pulmonology about the possibility of baricitinib. Need to outweigh the risks and benefits considering fatty liver. Encourage incentive spirometer. Continue to wean off oxygen. Respiratory consulted to help with this. Will provide medication for cough. Encourage ambulation, proning. Will continue to monitor closely. Will monitor CRP and ferritin. Anticipate home in the next 3 to 5 days. Acute renal injury likely dehydration: Encourage oral intake. Renal function improved. Will monitor this closely. Elevated liver function with fatty liver: Liver ultrasound of poor quality. Fatty liver noted. Continue monitor liver function test. New diabetes mellitus type 2: Hemoglobin A1c 9.0. Continue with Metformin. Continue to increase Lantus for better control. Sliding scale in place. Morbid obesity, BMI 54.4: Continue with lifestyle modification education. Chronic pain: Continue with pain medication CODE STATUS: Full code DVT prophylaxis: Luis [facility] care [id number] minutes: Home at discharge Time Spent Managing Pts Care (In Minutes): 55
[2021-05-18] MEDS: INSULIN -REGULAR HUMAN 50 UNIT/0.5 ML ML SQ SCH ×4 (07:30→20:05)
[2021-05-18] MEDS: METFORMIN HCL 500 MG TAB PO SCH ×2 (08:00→17:00)
[2021-05-18] MEDS: VITAMIN D 1000 UNIT TAB PO SCH (09:00)
[2021-05-18] MEDS: ASPIRIN EC 81 MG TAB PO SCH (09:00)
[2021-05-18] MEDS: ZINC SULFATE 220 MG CAP PO SCH (09:00)
[2021-05-18] MEDS: FAMOTIDINE 20 MG TAB PO SCH ×2 (09:00→20:05)
[2021-05-18] MEDS: ASCORBIC ACID 500 MG TABLET PO SCH ×4 (09:00→20:05)
[2021-05-18] MEDS: THIAMINE HCL 100 MG TABLET PO SCH (09:00)
[2021-05-18] MEDS: METHYLPREDNISOLONE 125 MG INJ IV SCH ×3 (09:00→20:05)
[2021-05-18] MEDS: INSULIN GLARGINE 100 UNITS/ML SQ SCH ×2 (09:00→20:05)
--- NOTE | 2021-05-18 09:01 | RAD REPORT ---
EXAM DESCRIPTION: RAD - Chest Single View - 05/18/2021 7:00 am CLINICAL HISTORY: Follow up COVIDpneumonia COMPARISON: May 16 TECHNIQUE: AP portable chest image was obtained 05/18/2021 7:00 am . FINDINGS: Patient is in a lordotic position with extremely low lung volume. Very large body habitus further limits the examination. Lung parenchymal opacification is not grossly different comparison. A significant amount of pneumonia or lung disease is probably not present but difficult to accurately assess with the exam limitations. There is further need to assess patient status of repeat chest fabiola m may be helpful. Heart and vasculature are normal. No measurable pleural effusion and no pneumothorax. No acute bony abnormality seen. No acute aortic findings suspected. IMPRESSION: Extremely limited chest film not substantially different from comparison. If tolerable by the patient, a repeat chest film could be attempted trying to achieve better position ing and improved lung volume.
[2021-05-18] MEDS ORDERED: ASCORBIC ACID 500 MG TABLET ONE ×4 (10:46→20:21)
[2021-05-18] MEDS ORDERED: METHYLPREDNISOLONE 125 MG INJ ONE ×2 (10:46→16:29)
[2021-05-18] MEDS ORDERED: THIAMINE HCL 100 MG TABLET ONE (10:47)
[2021-05-18] MEDS ORDERED: INSULIN GLARGINE 100 UNITS/ML SQ ONE ×2 (10:47→20:21)
[2021-05-18] MEDS ORDERED: VITAMIN D 1000 UNIT TAB ONE (10:48)
[2021-05-18] MEDS ORDERED: ZINC SULFATE 220 MG CAP ONE (10:48)
[2021-05-18] MEDS ORDERED: ASPIRIN EC 81 MG TAB PO ONE (10:48)
[2021-05-18] MEDS ORDERED: METFORMIN HCL 500 MG TAB ONE ×2 (10:48→16:29)
[2021-05-18] MEDS ORDERED: FAMOTIDINE 20 MG TAB ONE ×2 (10:49→20:22)
[2021-05-18] MEDS ORDERED: INSULIN -REGULAR HUMAN 50 UNIT/0.5 ML ML ONE ×3 (10:49→20:22)
[2021-05-18] MEDS ORDERED: ENOXAPARIN 40 MG/0.4 ML SQ ONE (16:30)
[2021-05-18] MEDS: ENOXAPARIN 40 MG/0.4 ML SQ SCH (17:00)
[2021-05-18] MEDS ORDERED: METHYLPREDNISOLONE 40 MG INJ ONE (20:22)
[2021-05-19 04:47] LABS: Basophils % 0.1 % (0-1.3); Hematocrit 44.3 % (39.6-49.0); Lymphocytes % 15.7 % (15.3-44.8); MPV 8.9 fL (7.6-11.3)
[2021-05-19 04:58] LABS: ALT/SGPT 53 U/L (12-78); AST/SGOT 32 U/L (15-37); Albumin 2.4 g/dL (3.4-5.0); Alkaline Phosphatase 69 U/L (45-117); BUN Blood Urea Nitrogen 27 mg/dL (7-18); Bicarbonate 28 mmol/L (21-32); Bilirubin Total 0.5 mg/dL (0.2-1.0); Ferritin 1602.7 ng/mL (26-388); Glucose Level 309 mg/dL (74-106); Magnesium 2.5 mg/dL (1.8-2.4); Potassium 4.3 mmol/L (3.5-5.1); Protein, Total 7.6 g/dL (6.4-8.2); Sodium Level 131 mmol/L (136-145)
--- NOTE | 2021-05-19 06:02 | P.PN ---
Subjective Date of Service: 05/19/21 Primary Care Provider: none Chief Complaint: covid pneumonia Subjective: Improving (Patient currently on 6 L per nasal cannula. This is an increase since yesterday. Patient appears somewhat improved.) Physical Examination - Vital Signs Temperature: 97.8 F Blood Pressure: 119/80 Pulse: 87 Respirations: 24 Pulse Ox (%): 88 Assessment & Plan Discharge Plan: Home Plan to discharge in: Greater than 2 days Physician Review Additional Text: COVID: Positive, Unvaccinated CXR: COMPARISON: Two view chest May 14 TECHNIQUE: AP portable chest image was obtained 05/16/2021 4:13 pm . FINDINGS: Lung volumes are very low accentuating interstitial and alveolar pattern. Finding is not significantly different from comparison. No progression from the May 14 study. Bilateral pneumonia including COVID-19 pneumonia remain primary considerations. Heart and vasculature are normal. No measurable pleural effusion and no pneumo thorax. No acute bony abnormality seen. No acute aortic findings suspected. IMPRESSION: Bilateral infiltrate pattern showing no progression from May 14 imaging. Liver US: COMPARISON: No comparisons FINDINGS: Extensive bowel gas is present which limits evaluation of the liver parenchyma.Probably, mild fatty liver is present.The spleen appears mildly enlarged measuring 15 cm. IMPRESSION: Combination of patient body habitus sac significant bowel-gas made visualization of the liver parenchyma quite limited. Follow-up chest x-ray: COMPARISON: May 16 TECHNIQUE: AP portable chest image was obtained 05/18/2021 7:00 am . FINDINGS: Patient is in a lordotic position with extremely low lung volume. Very large body habitus further limits the examination. Lung parenchymal opacification is not grossly different comparison. A significant amount of pneumonia or lung disease is probably not present but difficult to accurately assess with the exam limitations. There is further need to assess patient status of repeat chest film may be helpful. Heart and vasculature are normal. No measurable pleural effusion and no pneumothorax. No acute bony abnormality seen. No acute aortic findings suspected. IMPRESSION: Extremely limited chest film not substantially different from comparison. Physical Exam: General: Alert, In no apparent distress HEENT: Atraumatic. Mucous membranes moist. Neck: Neck supple Respiratory: Better air movement than yesterday. Stable on 6 L per nasal cannula. Cardiovascular: Regular rate/rhythm, Normal S1 S2 Gastrointestinal: Normal bowel sounds, No tenderness Musculoskeletal: No tenderness Integumentary: No rashes Neurological: Normal speech, Normal strength at 5/5 x4 extr, Normal tone, Normal affect Lymphatics: No axilla or inguinal lymphadenopathy Impression: Dyspnea secondary to bilateral Covid pneumonia, unvaccinated Acute renal injury likely dehydration Elevated liver function with fatty liver New diabetes mellitus type 2 Morbid obesity, BMI 54.4 Chronic pain Plan: Dyspnea secondary to bilateral Covid pneumonia, unvaccinated: Patient remained stable. Currently on 6 L per nasal cannula. CRP and ferritin improved. Continue IV steroids, ivermectin, and supplementation. Liver function test now normal. Will start baricitinib per protocol. Will monitor liver function closely. Patient understands this is investigational medicine. We will continue to monitor closely with pharmacy. Encourage incentive spirometer. Continue to wean off oxygen. Respiratory consulted to help with this. Will provide medication for cough. Encourage ambulation, proning. Will continue to monitor closely. Will monitor CRP and ferritin. Anticipate home in the next 3 to 5 days. Acute renal injury likely dehydration: Encourage oral intake. Renal function improved. Will monitor this closely. Elevated liver function with fatty liver: Liver ultrasound of poor quality. Fatty liver noted. Continue monitor liver function test. New diabetes mellitus type 2: Hemoglobin A1c 9.0. Continue with Metformin. Continue to increase Lantus for better control. Sliding scale in place. Morbid obesity, BMI 54.4: Continue with lifestyle modification education. Chronic pain: Continue with pain medication CODE STATUS: Full code DVT prophylaxis: Lovenox Advanced care [id number] minutes: Home at discharge Time Spent Managing Pts Care (In Minutes): 55
[2021-05-19] MEDS: ZINC SULFATE 220 MG CAP PO SCH (08:01)
[2021-05-19] MEDS: THIAMINE HCL 100 MG TABLET PO SCH (08:01)
[2021-05-19] MEDS: VITAMIN D 1000 UNIT TAB PO SCH (08:01)
[2021-05-19] MEDS: ASPIRIN EC 81 MG TAB PO SCH (08:02)
[2021-05-19] MEDS: FAMOTIDINE 20 MG TAB PO SCH ×2 (08:02→20:23)
[2021-05-19] MEDS: ASCORBIC ACID 500 MG TABLET PO SCH ×4 (08:02→20:23)
[2021-05-19] MEDS: METFORMIN HCL 500 MG TAB PO SCH ×2 (08:02→16:38)
[2021-05-19] MEDS: METHYLPREDNISOLONE 125 MG INJ IV SCH ×3 (08:02→20:24)
[2021-05-19] MEDS: INSULIN -REGULAR HUMAN 50 UNIT/0.5 ML ML SQ SCH ×4 (08:04→20:24)
[2021-05-19] MEDS: INSULIN GLARGINE 100 UNITS/ML SQ SCH ×2 (08:09→20:25)
[2021-05-19] MEDS: IVERMECTIN 3 MG TABLET PO SCH (10:11)
[2021-05-19] MEDS: BARICITINIB 2 MG TABLET PO SCH (10:12)
[2021-05-19] MEDS: BENZONATATE 100 MG CAP PO PRN (10:27)
--- NOTE | 2021-05-19 12:08 | P.PN ---
Subjective Date of Service: 05/19/21 Primary Care Provider: none Chief Complaint: covid pneumonia Subjective: Improving (On 6 L of NC) Review of Systems General: Weakness Respiratory: Shortness of Breath Physical Examination - Vital Signs Temperature: 97.8 F Blood Pressure: 119/80 Pulse: 87 Respirations: 24 Pulse Ox (%): 88 - Physical Exam General: Alert, Oriented x3 Assessment & Plan - Problems (Diagnosis) (1) Pneumonia due to COVID-19 virus Current Visit: Yes Status: Acute Plan: Improving/ poss DC AM/
[2021-05-19] MEDS: GUAIFENESIN/CODEINE 5ML UCUP PO PRN ×2 (12:14→20:23)
[2021-05-19] MEDS: ENOXAPARIN 40 MG/0.4 ML SQ SCH (16:38)
[2021-05-19] MEDS: TRAMADOL HCL 50 MG TAB PO PRN (20:23)
[2021-05-20 04:27] LABS: Absolute Lymphocytes (CBC) 1.1 K/uL (0.7-4.9); Hematocrit 43.4 % (39.6-49.0); Lymphocytes % 18.9 % (15.3-44.8); MPV 8.7 fL (7.6-11.3)
[2021-05-20 04:35] LABS: ALT/SGPT 55 U/L (12-78); AST/SGOT 44 U/L (15-37); Albumin 2.4 g/dL (3.4-5.0); Alkaline Phosphatase 64 U/L (45-117); BUN Blood Urea Nitrogen 27 mg/dL (7-18); Bicarbonate 31 mmol/L (21-32); Bilirubin Total 0.5 mg/dL (0.2-1.0); Glucose Level 289 mg/dL (74-106); Magnesium 2.5 mg/dL (1.8-2.4); Potassium 4.6 mmol/L (3.5-5.1); Protein, Total 7.2 g/dL (6.4-8.2); Sodium Level 134 mmol/L (136-145)
--- NOTE | 2021-05-20 06:13 | P.PN ---
Subjective Date of Service: 05/20/21 Primary Care Provider: none Chief Complaint: covid pneumonia Subjective: Improving (Continues to improve. Currently on 6 L per nasal cannula) Physical Examination - Vital Signs Temperature: 96.9 F Blood Pressure: 127/97 Pulse: 69 Respirations: 17 Pulse Ox (%): 94 Assessment & Plan Discharge Plan: Home Plan to discharge in: 48 Hours Physician Review Additional Text: COVID: Positive, Unvaccinated CXR: COMPARISON: Two view chest May 14 TECHNIQUE: AP portable chest image was obtained 05/16/2021 4:13 pm . FINDINGS: Lung volumes are very low accentuating interstitial and alveolar pattern. Finding is not significantly different from comparison. No progression from the May 14 study. Bilateral pneumonia including COVID-19 pneumonia remain primary considerations. Heart and vasculature are normal. No measurable pleural effusion and no pneumothorax. No acute bony abnormality seen. No acute aortic findings suspec jhon. IMPRESSION: Bilateral infiltrate pattern showing no progression from May 14 imaging. Liver US: COMPARISON: No comparisons FINDINGS: Extensive bowel gas is present which limits evaluation of the liver parenchyma.Probably, mild fatty liver is present.The spleen appears mildly enlarged measuring 15 cm. IMPRESSION: Combination of patient body habitus sac significant bowel-gas made visualization of the liver parenchyma quite limited. Follow-up chest x-ray 05/18/2021: COMPARISON: May 16 TECHNIQUE: AP portable chest image was obtained 05/18/2021 7:00 am . FINDINGS: Patient is in a lordotic position with extremely low lung volume. Very large body habitus further limits the examination. Lung parenchymal opacification is not grossly different comparison. A significant amount of pneumonia or lung disease is probably not present but difficult to accurately assess with the exam limitations. There is further need to assess patient status of repeat chest film may be helpful. Heart and vasculature are normal. No measurable pleural effusion and no pneumothorax. No acute bony abnormality seen. No acute aortic findings suspected. IMPRESSION: Extremely limited chest film not substantially different from comparison. Physical Exam: General: Alert, In no apparent distress HEENT: Atraumatic. Mucous membranes moist. Neck: Neck supple Respiratory: Patient continues to improve. Better air movement. Stable on 6 L per nasal cannula Cardiovascular: Regular rate/rhythm, Normal S1 S2 Gastrointestinal: Normal bowel sounds, No tenderness Musculoskeletal: No tenderness Integumentary: No rashes Neurological: Normal speech, Normal strength at 5/5 x4 extr, Normal tone, Normal affect Lymphatics: No axilla or inguinal lymphadenopathy Impression: Dyspnea secondary to bilateral Covid pneumonia, unvaccinated Acute renal injury likely dehydration Elevated liver function with fatty liver New diabetes mellitus type 2 Morbid obesity, BMI 54.4 Chronic pain Plan: Dyspnea secondary to bilateral Covid pneumonia, unvaccinated: Patient continues to improve. Currently stable on 6 L per nasal cannula. CRP and ferritin improved. Continue IV steroids, vitamin supplementation and baricitinib. Continue to monitor liver function test while on medication. Encourage incentive spirometer. Continue to wean off oxygen. Maintain sats above 93%. Respiratory consulted to help with this. Will provide medication for cough. Encourage ambulation, proning. Anticipate continued improvement over the next 48 hours. Acute renal injury likely dehydration: Encourage oral intake. Renal function improved. Will monitor this closely. Elevated liver function with fatty liver: Liver ultrasound of poor quality. Fatty liver noted. Continue monitor liver function test. New diabetes mellitus type 2: Hemoglobin A1c 9.0. Continue with Metformin. Continue to increase Lantus for better control. Sliding scale in place. Morbid obesity, BMI 54.4: Continue with lifestyle modification education. Chronic pain: Continue with pain medication CODE STATUS: Full code DVT prophylaxis: Lovenox Advanced care [id number] minutes: Home at discharge Time Spent Managing Pts Care (In Minutes): 55
[2021-05-20] MEDS: METHYLPREDNISOLONE 125 MG INJ IV SCH ×3 (08:09→20:37)
[2021-05-20] MEDS: METFORMIN HCL 500 MG TAB PO SCH ×2 (08:09→16:31)
[2021-05-20] MEDS: ZINC SULFATE 220 MG CAP PO SCH (08:09)
[2021-05-20] MEDS: THIAMINE HCL 100 MG TABLET PO SCH (08:09)
[2021-05-20] MEDS: ASCORBIC ACID 500 MG TABLET PO SCH ×4 (08:09→20:37)
[2021-05-20] MEDS: VITAMIN D 1000 UNIT TAB PO SCH (08:09)
[2021-05-20] MEDS: ASPIRIN EC 81 MG TAB PO SCH (08:09)
[2021-05-20] MEDS: BARICITINIB 2 MG TABLET PO SCH (08:09)
[2021-05-20] MEDS: INSULIN GLARGINE 100 UNITS/ML SQ SCH ×2 (08:10→20:36)
[2021-05-20] MEDS: INSULIN -REGULAR HUMAN 50 UNIT/0.5 ML ML SQ SCH ×4 (08:11→20:35)
[2021-05-20] MEDS: HYDROCODONE/APAP 7.5/325 MG TAB PO PRN (08:26)
[2021-05-20] MEDS ORDERED: PHENOL 1.4% ORAL SPRAY 180ML MM PRN (08:47)
[2021-05-20] MEDS: FAMOTIDINE 20 MG TAB PO SCH ×2 (10:11→20:37)
[2021-05-20] MEDS: GUAIFENESIN/CODEINE 5ML UCUP PO PRN (14:51)
[2021-05-20] MEDS: ENOXAPARIN 40 MG/0.4 ML SQ SCH (16:31)
[2021-05-20] MEDS: TRAMADOL HCL 50 MG TAB PO PRN (20:36)
[2021-05-20] MEDS: MELATONIN 5 MG TABLET PO PRN (20:37)
--- NOTE | 2021-05-21 06:02 | P.PN ---
Subjective Date of Service: 05/21/21 Primary Care Provider: none Chief Complaint: covid pneumonia Subjective: Improving (Patient slowly improving. Overall stable at 6 L) Physical Examination - Vital Signs Temperature: 97.8 F Blood Pressure: 111/68 Pulse: 63 Respirations: 18 Pulse Ox (%): 91 Assessment & Plan Discharge Plan: Home Plan to discharge in: 48 Hours Physician Review Additional Text: COVID: Positive, Unvaccinated CXR: COMPARISON: Two view chest May 14 TECHNIQUE: AP portable chest image was obtained 05/16/2021 4:13 pm . FINDINGS: Lung volumes are very low accentuating interstitial and alveolar pattern. Finding is not significantly different from comparison. No progression from the May 14 study. Bilateral pneumonia including COVID-19 pneumonia remain primary considerations. Heart and vasculature are normal. No measurable pleural effusion and no pneumothorax. No acute bony abnormality seen. No acute aortic findings suspected. IMPRESSION: Bilateral infiltrate pattern showing no progression from May 14 imaging. Liver US: COMPARISON: No comparisons FINDINGS: Extensive bowel gas is present which limits evaluation of the liver parenchyma.Probably, mild fatty liver is present.The spleen appears mildly enlarged measuring 15 cm. IMPRESSION: Combination of patient body habitus sac significant bowel-gas made visualization of the liver parenchyma quite limited. Follow-up chest x-ray 05/18/2021: COMPARISON: May 16 TECHNIQUE: AP portable chest image was obtained 05/18/2021 7:00 am . FINDINGS: Patient is in a lordotic position with extremely low lung volume. Very large body habitus further limits the examination. Lung parenchymal opacification is not grossly different comparison. A significant amount of pneumonia or lung disease is probably not present but difficult to accurately assess with the exam limitations. There is further need to assess patient status of repeat chest film may be helpful. Heart and vasculature are normal. No measurable pleural effusion and no pneumothorax. No acute bony abnormality seen. No acute aortic findings suspected. IMPRESSION: Extremely limited chest film not substantially different from comparison. Physical Exam: General: Alert, In no apparent distress HEENT: Atraumatic. Mucous membranes moist. Neck: Neck supple Respiratory: Patient continues to improve. Better air movement. Stable on 6 L per nasal cannula Cardiovascular: Regular rate/rhythm, Normal S1 S2 Gastrointestinal: Normal bowel sounds, No tenderness Musculoskeletal: No tenderness Integumentary: No rashes Neurological: Normal speech, Normal strength at 5/5 x4 extr, Normal tone, Normal affect Lymphatics: No axilla or inguinal lymphadenopathy Impression: Dyspnea secondary to bilateral Covid pneumonia, unvaccinated Acute renal injury likely dehydration Elevated liver function with fatty liver New diabetes mellitus type 2 Morbid obesity, BMI 54.4 Chronic pain Plan: Dyspnea secondary to bilateral Covid pneumonia, unvaccinated: Patient continues to slowly improve. Currently stable on 6 L per nasal cannula. CRP and ferritin improved. Will decrease IV steroid. Continue vitamin supplementation and baricitinib. Continue to monitor liver function test while on medication. Encourage incentive spirometer. Will order physical therapy to help ambulate. Will increase Metformin. Continue with insulin. Continue to wean off oxygen. Maintain sats above 93%. Continue with medication for cough. Encourage ambulation, proning. Anticipate continued improvement over the next 48 hours. Acute renal injury likely dehydration: Encourage oral intake. Renal function improved. Will monitor this closely. Elevated liver function with fatty liver: Liver ultrasound of poor quality. Fatty liver noted. Continue monitor liver function test. New diabetes mellitus type 2: Hemoglobin A1c 9.0. Increase Metformin. Continue to adjust Lantus for better control. Sliding scale in place. Morbid obesity, BMI 54.4: Continue with lifestyle modification education. Chronic pain: Continue with pain medication. Physical therapy ordered to help ambulate CODE STATUS: Full code DVT prophylaxis: Lovenox Advanced care [id number] minutes: Home at discharge Time Spent Managing Pts Care (In Minutes): 55
[2021-05-21 06:37] LABS: Absolute Lymphocytes (CBC) 1.1 K/uL (0.7-4.9); Basophils % 0.2 % (0-1.3); Hematocrit 44.4 % (39.6-49.0); Lymphocytes % 17.6 % (15.3-44.8); MPV 8.2 fL (7.6-11.3); RBC Red Blood Cell Count 5.01 M/uL (4.33-5.43)
[2021-05-21 06:55] LABS: Albumin 2.4 g/dL (3.4-5.0); Bilirubin Total 0.6 mg/dL (0.2-1.0); C-Reactive Protein 12.1 mg/L (<3.00); Ferritin 1250.2 ng/mL (26-388); Magnesium 2.6 mg/dL (1.8-2.4); Potassium 4.6 mmol/L (3.5-5.1); Protein, Total 7.2 g/dL (6.4-8.2)
[2021-05-21] MEDS: ASPIRIN EC 81 MG TAB PO SCH (08:16)
[2021-05-21] MEDS: METHYLPREDNISOLONE 125 MG INJ IV SCH ×3 (08:16→20:04)
[2021-05-21] MEDS: VITAMIN D 1000 UNIT TAB PO SCH (08:16)
[2021-05-21] MEDS: METFORMIN HCL 500 MG TAB PO SCH ×2 (08:16→16:35)
[2021-05-21] MEDS: THIAMINE HCL 100 MG TABLET PO SCH (08:16)
[2021-05-21] MEDS: ASCORBIC ACID 500 MG TABLET PO SCH ×4 (08:16→20:04)
[2021-05-21] MEDS: INSULIN GLARGINE 100 UNITS/ML SQ SCH ×2 (08:17→22:32)
[2021-05-21] MEDS: BARICITINIB 2 MG TABLET PO SCH (08:17)
[2021-05-21] MEDS: INSULIN -REGULAR HUMAN 50 UNIT/0.5 ML ML SQ SCH ×4 (08:17→22:33)
[2021-05-21] MEDS: ZINC SULFATE 220 MG CAP PO SCH (08:17)
[2021-05-21] MEDS: HYDROCODONE/APAP 7.5/325 MG TAB PO PRN ×2 (08:41→20:04)
[2021-05-21] MEDS: FAMOTIDINE 20 MG TAB PO SCH ×2 (09:00→20:03)
--- NOTE | 2021-05-21 09:37 | RAD REPORT ---
EXAM DESCRIPTION: RAD - Chest Single View - 05/21/2021 9:19 am CLINICAL HISTORY: Follow-up Covid Chest pain. COMPARISON: Chest Single View dated 05/18/2021; Chest Single View dated 05/16/2021; Chest Pa And Lat ( 2 Views) dated 05/14/2021; Chest Pa And Lat (2 Views) dated 12/05/2018 FINDINGS: Portable technique limits examination quality. Moderate bilateral pulmonary opacities are present showing moderate progression since 05/16/2021. The heart is normal in size. No displaced fractures. IMPRESSION: Moderate worsening in lung aeration seen since the 05/16/2021 study.
[2021-05-21] MEDS: ENOXAPARIN 40 MG/0.4 ML SQ SCH (16:35)
[2021-05-21] MEDS: GUAIFENESIN/CODEINE 5ML UCUP PO PRN (20:03)
[2021-05-21] MEDS: MELATONIN 5 MG TABLET PO PRN (20:04)
[2021-05-22 04:39] LABS: Absolute Lymphocytes (CBC) 1.3 K/uL (0.7-4.9); Basophils % 0.2 % (0-1.3); Hematocrit 44.2 % (39.6-49.0); Lymphocytes % 15.9 % (15.3-44.8); MPV 8.9 fL (7.6-11.3); RBC Red Blood Cell Count 5.01 M/uL (4.33-5.43)
[2021-05-22 05:09] LABS: ALT/SGPT 103 U/L (12-78); AST/SGOT 68 U/L (15-37); Albumin 2.4 g/dL (3.4-5.0); Alkaline Phosphatase 67 U/L (45-117); BUN Blood Urea Nitrogen 27 mg/dL (7-18); Bicarbonate 31 mmol/L (21-32); Bilirubin Total 0.5 mg/dL (0.2-1.0); Ferritin 1304.1 ng/mL (26-388); Glucose Level 229 mg/dL (74-106); Magnesium 2.3 mg/dL (1.8-2.4); Potassium 4.4 mmol/L (3.5-5.1); Protein, Total 7.1 g/dL (6.4-8.2); Sodium Level 134 mmol/L (136-145)
--- NOTE | 2021-05-22 06:04 | P.PN ---
Subjective Date of Service: 05/22/21 Primary Care Provider: none Chief Complaint: covid pneumonia Subjective: Other (Patient reports improvement. Currently on 5 L.) Physical Examination - Vital Signs Temperature: 98.4 F Blood Pressure: 120/69 Pulse: 67 Respirations: 18 Pulse Ox (%): 88 - Studies Microbiology Data (last 24 hrs): 05/16/21 18:28 Blood - Blood Aerobic Blood Culture - Final No growth in 5 days. 05/16/21 18:28 Blood - Blood Anaerobic Blood Culture - Final No growth in 5 days. 05/16/21 18:20 Blood - Blood Aerobic Blood Culture - Final No growth in 5 days. 05/16/21 18:20 Blood - Blood Anaerobic Blood Culture - Final No growth in 5 days. Assessment & Plan Discharge Plan: Home Plan to discharge in: 48 Hours Physician Review Additional Text: COVID: Positive, Unvaccinated CXR: COMPARISON: Two view chest May 14 TECHNIQUE: AP portable chest image was obtained 05/16/2021 4:13 pm . FINDINGS: Lung volumes are very low accentuating interstitial and alveolar pattern. Finding is not significantly different from comparison. No progression from the May 14 study. Bilateral pneumonia including COVID-19 pneumonia remain primary considerations. Heart and vasculature are normal. No measurable pleural effusion and no pneumothorax. No acute bony abnormality seen. No acute aortic findings suspected. IMPRESSION: Bilateral infiltrate pattern showing no progression from May 14 imaging. Liver US: COMPARISON: No comparisons FINDINGS: Extensive bowel gas is present which limits evaluation of the liver parenchyma.Probably, mild fatty liver is present.The spleen appears mildly enlarged measuring 15 cm. IMPRESSION: Combination of patient body habitus sac significant bowel-gas made visualization of the liver parenchyma quite limited. Follow-up chest x-ray 05/18/2021: COMPARISON: May 16 TECHNIQUE: AP portable chest image was obtained 05/18/2021 7:00 am . FINDINGS: Patient is in a lordotic position with extremely low lung volume. Very large body habitus further limits the examination. Lung parenchymal opacification is not grossly different comparison. A significant amount of pneumonia or lung disease is probably not present but difficult to accurately assess with the exam limitations. There is further need to assess patient status of repeat chest film may be helpful. Heart and vasculature are normal. No measurable pleural effusion and no pneumothorax. No acute bony abnormality seen. No acute aortic findings suspected. IMPRESSION: Extremely limited chest film not substantially different from comparison. Physical Exam: General: Alert, In no apparent distress HEENT: Atraumatic. Mucous membranes moist. Neck: Neck supple Respiratory: Patient continues to improve. Better air movement. Currently on 5 L Cardiovascular: Regular rate/rhythm, Normal S1 S2 Gastrointestinal: Normal bowel sounds, No tenderness Musculoskeletal: No tenderness Integumentary: No rashes Neurological: Normal speech, Normal strength at 5/5 x4 extr, Normal tone, Normal affect Lymphatics: No axilla or inguinal lymphadenopathy Impression: Dyspnea secondary to bilateral Covid pneumonia, unvaccinated Acute renal injury likely dehydration Elevated liver function with fatty liver New diabetes mellitus type 2 Morbid obesity, BMI 54.4 Chronic pain Plan: Dyspnea secondary to bilateral Covid pneumonia, unvaccinated: Slow improvement noted. Currently on 5 L per nasal cannula. CRP and ferritin stable. Continue IV steroid. Continue vitamin supplementation and baricitinib. Continue to monitor liver function test while on medication. Encourage incentive spirometer. Will order physical therapy to help ambulate. Continue with Metformin and insulin.. Continue to wean off oxygen. Maintain sats above 93%. Continue with medication for cough. Encourage ambulation, proning. Anticipate continued improvement over the next 48 hours. Acute renal injury likely dehydration: Encourage oral intake. Renal function improved. Will monitor this closely. Elevated liver function with fatty liver: Liver ultrasound of poor quality. Fatty liver noted. Continue monitor liver function test. New diabetes mellitus type 2: Hemoglobin A1c 9.0. Continue with Metformin and Lantus. Will adjust Lantus for better control. Morbid obesity, BMI 54.4: Continue with lifestyle modification education. Chronic pain: Continue with pain medication. Physical therapy ordered to help ambulate CODE STATUS: Full code DVT prophylaxis: Lovenox Advanced care [id number] minutes: Home at discharge Time Spent Managing Pts Care (In Minutes): 55
[2021-05-22] MEDS: METFORMIN HCL 500 MG TAB PO SCH ×2 (08:01→16:24)
[2021-05-22] MEDS: METHYLPREDNISOLONE 125 MG INJ IV SCH ×2 (08:02→20:10)
[2021-05-22] MEDS: ASCORBIC ACID 500 MG TABLET PO SCH ×4 (08:02→20:12)
[2021-05-22] MEDS: ZINC SULFATE 220 MG CAP PO SCH (08:02)
[2021-05-22] MEDS: THIAMINE HCL 100 MG TABLET PO SCH (08:03)
[2021-05-22] MEDS: VITAMIN D 1000 UNIT TAB PO SCH (08:03)
[2021-05-22] MEDS: INSULIN GLARGINE 100 UNITS/ML SQ SCH ×2 (08:03→22:35)
[2021-05-22] MEDS: ASPIRIN EC 81 MG TAB PO SCH (08:03)
[2021-05-22] MEDS: BARICITINIB 2 MG TABLET PO SCH (08:03)
[2021-05-22] MEDS: INSULIN -REGULAR HUMAN 50 UNIT/0.5 ML ML SQ SCH ×4 (08:04→22:36)
[2021-05-22] MEDS: FAMOTIDINE 20 MG TAB PO SCH ×2 (08:05→20:12)
[2021-05-22] MEDS: ENOXAPARIN 40 MG/0.4 ML SQ SCH (16:23)
[2021-05-22] MEDS: MELATONIN 5 MG TABLET PO PRN (20:11)
[2021-05-23 04:19] LABS: Absolute Lymphocytes (CBC) 1.4 K/uL (0.7-4.9); Hematocrit 44.7 % (39.6-49.0); Lymphocytes % 15.5 % (15.3-44.8); MPV 8.6 fL (7.6-11.3); RBC Red Blood Cell Count 5.06 M/uL (4.33-5.43)
[2021-05-23 04:58] LABS: ALT/SGPT 149 U/L (12-78); AST/SGOT 85 U/L (15-37); Albumin 2.4 g/dL (3.4-5.0); Alkaline Phosphatase 70 U/L (45-117); BUN Blood Urea Nitrogen 27 mg/dL (7-18); Bicarbonate 29 mmol/L (21-32); Bilirubin Total 0.5 mg/dL (0.2-1.0); Glucose Level 190 mg/dL (74-106); Magnesium 2.2 mg/dL (1.8-2.4); Potassium 4.5 mmol/L (3.5-5.1); Protein, Total 7.1 g/dL (6.4-8.2); Sodium Level 134 mmol/L (136-145)
--- NOTE | 2021-05-23 06:10 | P.PN ---
Subjective Date of Service: 05/23/21 Primary Care Provider: none Chief Complaint: covid pneumonia Subjective: Improving (Patient overall stable. Currently on 6 L per nasal cannula) Physical Examination - Vital Signs Temperature: 97.6 F Blood Pressure: 128/74 Pulse: 65 Respirations: 20 Pulse Ox (%): 95 Assessment & Plan Discharge Plan: Home Plan to discharge in: 48 Hours Physician Review Additional Text: COVID: Positive, Unvaccinated CXR: COMPARISON: Two view chest May 14 TECHNIQUE: AP portable chest image was obtained 05/16/2021 4:13 pm . FINDINGS: Lung volumes are very low accentuating interstitial and alveolar pattern. Finding is not significantly different from comparison. No progression from the May 14 study. Bilateral pneumonia including COVID-19 pneumonia remain primary considerations. Heart and vasculature are normal. No measurable pleural effusion and no pneumothorax. No acute bony abnormality seen. No acute aortic findings susp ected. IMPRESSION: Bilateral infiltrate pattern showing no progression from May 14 imaging. Liver US: COMPARISON: No comparisons FINDINGS: Extensive bowel gas is present which limits evaluation of the liver parenchyma.Probably, mild fatty liver is present.The spleen appears mildly enlarged measuring 15 cm. IMPRESSION: Combination of patient body habitus sac significant bowel-gas made visualization of the liver parenchyma quite limited. Follow-up chest x-ray 05/18/2021: COMPARISON: May 16 TECHNIQUE: AP portable chest image was obtained 05/18/2021 7:00 am . FINDINGS: Patient is in a lordotic position with extremely low lung volume. Very large body habitus further limits the examination. Lung parenchymal opacification is not grossly different comparison. A significant amount of pneumonia or lung disease is probably not present but difficult to accurately assess with the exam limitations. There is further need to assess patient status of repeat chest film may be helpful. Heart and vasculature are normal. No measurable pleural effusion and no pneumothorax. No acute bony abnormality seen. No acute aortic findings suspecte d. IMPRESSION: Extremely limited chest film not substantially different from comparison. Physical Exam: General: Alert, In no apparent distress HEENT: Atraumatic. Mucous membranes moist. Neck: Neck supple Respiratory: Patient continues to improve. Better air movement. Currently on 6 L Cardiovascular: Regular rate/rhythm, Normal S1 S2 Gastrointestinal: Normal bowel sounds, No tenderness Musculoskeletal: No tenderness Integumentary: No rashes Neurological: Normal speech, Normal strength at 5/5 x4 extr, Normal tone, Normal affect Lymphatics: No axilla or inguinal lymphadenopathy Impression: Dyspnea secondary to bilateral Covid pneumonia, unvaccinated Acute renal injury likely dehydration Elevated liver function with fatty liver New diabetes mellitus type 2 Morbid obesity, BMI 54.4 Chronic pain Plan: Dyspnea secondary to bilateral Covid pneumonia, unvaccinated: Slow improvement noted. Currently on 6 L per nasal cannula. Patient encouraged to ambulate and use incentive spirometer. Will consult physical therapy to help with this. CRP and ferritin improved. Continue IV steroids and vitamin supplementation. Continue baricitinib. Continue to monitor liver function test while on medication. Encourage incentive spirometer. Consider decreasing IV steroids over the next day. Continue with Metformin and insulin.. Continue to wean off oxygen. Maintain sats above 93%. Continue with medication for cough. Encourage ambulation, proning. Anticipate continued improvement over the next 48 hours. Acute renal injury likely dehydration: Encourage oral intake. Renal function improved. Will monitor this closely. Elevated liver function with fatty liver: Liver ultrasound of poor quality. Fatty liver noted. Continue monitor liver function test. New diabetes mellitus type 2: Hemoglobin A1c 9.0. Continue with Metformin and Lantus. Will adjust Lantus for better control. Morbid obesity, BMI 54.4: Continue with lifestyle modification education. Chronic pain: Continue with pain medication. Physical therapy ordered to help ambulate CODE STATUS: Full code DVT prophylaxis: Lovenox Advanced care [id number] minutes: Home at discharge Time Spent Managing Pts Care (In Minutes): 55
[2021-05-23] MEDS: INSULIN -REGULAR HUMAN 50 UNIT/0.5 ML ML SQ SCH ×4 (07:30→21:38)
[2021-05-23] MEDS: VITAMIN D 1000 UNIT TAB PO SCH (07:57)
[2021-05-23] MEDS: METFORMIN HCL 500 MG TAB PO SCH ×2 (07:57→16:09)
[2021-05-23] MEDS: ZINC SULFATE 220 MG CAP PO SCH (07:57)
[2021-05-23] MEDS: THIAMINE HCL 100 MG TABLET PO SCH (07:57)
[2021-05-23] MEDS: METHYLPREDNISOLONE 125 MG INJ IV SCH ×2 (07:58→19:32)
[2021-05-23] MEDS: FAMOTIDINE 20 MG TAB PO SCH ×2 (07:58→19:31)
[2021-05-23] MEDS: INSULIN GLARGINE 100 UNITS/ML SQ SCH ×2 (07:58→21:39)
[2021-05-23] MEDS: ASPIRIN EC 81 MG TAB PO SCH (07:58)
[2021-05-23] MEDS: ASCORBIC ACID 500 MG TABLET PO SCH ×4 (07:58→19:31)
[2021-05-23] MEDS: BARICITINIB 2 MG TABLET PO SCH (08:05)
[2021-05-23] MEDS: ENOXAPARIN 40 MG/0.4 ML SQ SCH (16:09)
[2021-05-24 04:26] LABS: Absolute Lymphocytes (CBC) 1.3 K/uL (0.7-4.9); Basophils % 0.3 % (0-1.3); Hematocrit 45.1 % (39.6-49.0); Lymphocytes % 15.3 % (15.3-44.8); MPV 8.4 fL (7.6-11.3); RBC Red Blood Cell Count 5.11 M/uL (4.33-5.43)
[2021-05-24 04:43] LABS: ALT/SGPT 185 U/L (12-78); AST/SGOT 83 U/L (15-37); Albumin 2.5 g/dL (3.4-5.0); Alkaline Phosphatase 67 U/L (45-117); BUN Blood Urea Nitrogen 30 mg/dL (7-18); Bicarbonate 29 mmol/L (21-32); Bilirubin Total 0.5 mg/dL (0.2-1.0); Ferritin 1263.6 ng/mL (26-388); Glucose Level 204 mg/dL (74-106); Magnesium 2.3 mg/dL (1.8-2.4); Potassium 4.5 mmol/L (3.5-5.1); Protein, Total 7.2 g/dL (6.4-8.2); Sodium Level 132 mmol/L (136-145)
--- NOTE | 2021-05-24 06:17 | P.DS ---
Admission Date: 05/16/21 Discharge Date: 05/24/21 Primary Care Provider: none Disposition: ROUTINE DISCHARGE Discharge Condition: GOOD Reason for Admission: covid pneumonia Consultations: Pulmomary-Dr. Rodriguez Procedures: COVID: Positive, Unvaccinated CXR: COMPARISON: Two view chest May 14 TECHNIQUE: AP portable chest image was obtained 05/16/2021 4:13 pm . FINDINGS: Lung volumes are very low accentuating interstitial and alveolar pattern. Finding is not significantly different from comparison. No progression from the May 14 study. Bilateral pneumonia including COVID-19 pneumonia remain primary considerations. Heart and vasculature are normal. No measurable pleural effusion and no pneumothorax. No acute bony abnormality seen. No acute aortic findings suspected. IMPRESSION: Bilateral infiltrate pattern showing no progression from May 14 imaging. Liver US: COMPARISON: No comparisons FINDINGS: Extensive bowel gas is present which limits evaluation of the liver parenchyma.Probably, mild fatty liver is present.The spleen appears mildly enlarged measuring 15 cm. IMPRESSION: Combination of patient body habitus sac significant bowel-gas made visualization of the liver parenchyma quite limited. Follow-up chest x-ray 05/18/2021: COMPARISON: May 16 TECHNIQUE: AP portable chest image was obtained 05/18/2021 7:00 am . FINDINGS: Patient is in a lordotic position with extremely low lung volume. Very large body habitus further limits the examination. Lung parenchymal opacification is not grossly different comparison. A significant amount of pneumonia or lung disease is probably not present but difficult to accurately assess with the exam limitations. There is further need to assess patient status of repeat chest film may be helpful. Heart and vasculature are normal. No measurable pleural effusion and no pneumothorax. No acute bony abnormality seen. No acute aortic findings suspected. IMPRESSION: Extremely limited chest film not substantially different from comparison. Medical problem list: Dyspnea secondary to bilateral Covid pneumonia, unvaccinated Acute renal injury likely dehydration Elevated liver function with fatty liver New diabetes mellitus type 2 Morbid obesity, BMI 54.4 Chronic pain Brief History of Present Illness: Mr. Emery is a 35 yo M who presents with cough and SOB. He tested positive for COVID on 05/14. Symptoms began on 05/05. He reports pleuritic pain and wheezing as well as anorexia and decreased fluid intake. Denies diarrhea. Sats in the 80s on room air on arrival, now stable on NC. Plt 30, Na 127, Cl 95. Cr 1.42, GFR 56. Glu 311. Ferritin 2672. AST 95, ALT 98. CRP 147. Alb 2.9. Procal 0.18. CXR consistent with covid pneumonia. Hospital Course: Patient presented with dyspnea secondary to bilateral Covid pneumonia. Patient was unvaccinated. Patient was admitted for treatment. During the course of his stay patient received IV steroids, vitamin supplementation and baricitinib. His condition improved. Patient now down to 2 to 3 L per nasal cannula. Patient able to ambulate appropriately. At discharge the patient will continue with home oxygen to maintain sats above 93%. Patient currently on 2 to 3 L. This can be weaned off with the help of pulmonology. At discharge the patient will continue with prednisone 20 mg 1 pill twice daily for 7 days then 1 pill once daily for 7 days. The patient will also continue with aspirin 81 mg daily. Patient will be provided a limited supply of Robitussin with codeine 5 mL 3 times a day as needed for cough. The patient will continue with vitamin supplementation including vitamin C 500 mg 3 times a day, vitamin D 2000 units daily, thiamine 100 mg 1 pill twice daily, zinc 220 mg daily, and Pepcid 20 mg 1 pill twice daily. Patient will continue with CDC guidelines on isolation for at least 10 days. Recommend to continue with incentive spirometer, proning, and ambulation. Patient may need to limit his activities. Patient will continue with handwashing, facemask use, social distancing. Recommend follow-up with pulmonology in 1 week to follow-up this hospitalization. Pulmonology will help wean off medication and oxygen. Patient will need to establish care with a PCP to follow-up this hospitalization as well. Patient presented with acute renal injury. This is likely from dehydration. Renal function back to baseline. Patient had elevated liver function. Liver ultrasound shows fatty liver. This appears stable at this time. Recommend to recheck labCMP in 1 to 2 weeks to monitor his progress. Education on fatty liver provided. This can be further evaluated as an outpatient with the help of his PCP. Patient with new diabetes mellitus type 2. Hemoglobin A1c 9.0. Patient was started on Metformin and Lantus. At discharge patient will continue with current medicationMetformin 1000 mg 1 pill twice daily and Lantus. Recommend to monitor blood sugar daily. Recommend to maintain blood sugar less than 140 fasting and less than 200 after meals. Further adjustment in his medication may be required. This can be done with the help of his PCP. Patient will establish care locally to follow-up his care. Recommend to recheck hemoglobin A1c every 3 months to monitor his progress. Patient with chronic pain. Patient may take Tylenol or ibuprofen as needed. Patient with morbid obesity. BMI 54. Lifestyle modification education and weight loss will be important in the future. This can be done with the help of his PCP. Vital Signs/Physical Exam: Temp Pulse Resp BP Pulse Ox 97.9 F 62 20 124/78 95 05/24/21 04:00 05/24/21 04:00 05/24/21 04:00 05/24/21 04:00 05/24/21 04:00 General: Alert, In no apparent distress, Oriented x3, Cooperative HEENT: Atraumatic Neck: Supple Respiratory: Clear to auscultation bilaterally, Other (Currently on 2 to 3 L) Cardiovascular: Normal pulses, Regular rate/rhythm Gastrointestinal: No ascites Musculoskeletal: No erythema, No tenderness, No warmth Integumentary: No tenderness/swelling, No erythema, No warmth, No cyanosis Neurological: Normal speech, Normal strength at 5/5 x4 extr, Normal tone Laboratory Data at Discharge: WBC 8.80 K/uL (4.3-10.9) 05/24/21 04:10 Hgb 15.8 g/dL (13.6-17.9) 05/24/21 04:10 Hct 45.1 % (39.6-49.0) 05/24/21 04:10 Plt Count 239 K/uL (152-406) 05/24/21 04:10 PT 12.7 SECONDS (9.5-12.5) H 05/16/21 18:20 INR 1.10 05/16/21 18:20 APTT 33.5 SECONDS (24.3-36.9) 05/16/21 18:20 Sodium 132 mmol/L (136-145) L 05/24/21 04:10 Potassium 4.5 mmol/L (3.5-5.1) 05/24/21 04:10 BUN 30 mg/dL (7-18) H 05/24/21 04:10 Creatinine 0.90 mg/dL (0.55-1.3) 05/24/21 04:10 Glucose 204 mg/dL (74-106) H 05/24/21 04:10 Phosphorus 3.8 mg/dL (2.5-4.9) 05/17/21 05:13 Magnesium 2.3 mg/dL (1.8-2.4) 05/24/21 04:10 Total Bilirubin 0.5 mg/dL (0.2-1.0) 05/24/21 04:10 AST 83 U/L (15-37) H 05/24/21 04:10 ALT 185 U/L (12-78) H 05/24/21 04:10 Alkaline Phosphatase 67 U/L (45-117) 05/24/21 04:10 Triglycerides 124 mg/dL (<150) 05/17/21 05:13 Cholesterol 107 mg/dL (<200) 05/17/21 05:13 HDL Cholesterol 22 mg/dL (40-60) L 05/17/21 05:13 Cholesterol/HDL Ratio 4.86 05/17/21 05:13 Lipase 164 U/L (73-393) 05/16/21 18:20 Home Medications: Ascorbic Acid [Vitamin C*] 500 mg PO TID #90 tablet 05/24/21 Aspirin [Aspirin EC 81 MG] 81 mg PO DAILY #90 tablet. 05/24/21 Cholecalciferol (Vitamin D3) [Vitamin D 1000 Iu Tab*] 2,000 unit PO DAILY #60 tab 05/24/21 Famotidine [Pepcid*] 20 mg PO BID #60 tab 05/24/21 Guaifen W/Codeine Syrup [ROBITUSSIN A-C Syrup*] 5 ml PO QID PRN #1 bottle 05/24/21 Insulin Glargine Human [Lantus*] 20 units SQ BID #1 vial 05/24/21 Metformin HCl 1,000 mg PO BID #60 tablet 05/24/21 Thiamine HCl [Vitamin B-1*] 100 mg PO BID #60 tablet 05/24/21 Zinc Sulfate [Zinc Sulfate*] 220 mg PO DAILY #30 cap 05/24/21 predniSONE [Prednisone*] 20 mg PO SEECOM #21 tab 05/24/21 New Medications: Aspirin [Aspirin EC 81 MG] 81 mg PO DAILY #90 tablet. Insulin Glargine Human [Lantus*] 20 units SQ BID #1 vial Metformin HCl 1,000 mg PO BID #60 tablet Famotidine [Pepcid*] 20 mg PO BID #60 tab predniSONE [Prednisone*] 20 mg PO SEECOM #21 tab Guaifen W/Codeine Syrup [ROBITUSSIN A-C Syrup*] 5 ml PO QID PRN #1 bottle PRN Reason: Cough Thiamine HCl [Vitamin B-1*] 100 mg PO BID #60 tablet Ascorbic Acid [Vitamin C*] 500 mg PO TID #90 tablet Cholecalciferol (Vitamin D3) [Vitamin D 1000 Iu Tab*] 2,000 unit PO DAILY #60 tab Zinc Sulfate [Zinc Sulfate*] 220 mg PO DAILY #30 cap Physician Discharge Instructions: Patient presented with dyspnea secondary to bilateral Covid pneumonia. Patient was unvaccinated. Patient was admitted for treatment. During the course of his stay patient received IV steroids, vitamin supplementation and baricitinib. His condition improved. Patient now down to 2 to 3 L per nasal cannula. Patient able to ambulate appropriately. At discharge the patient will continue with home oxygen to maintain sats above 93%. Patient currently on 2 to 3 L. This can be weaned off with the help of pulmonology. At discharge the patient will continue with prednisone 20 mg 1 pill twice daily for 7 days then 1 pill once daily for 7 days. The patient will also continue with aspirin 81 mg daily. Patient will be provided a limited supply of Robitussin with codeine 5 mL 3 times a day as needed for cough. The patient will continue with vitamin supplementation including vitamin C 500 mg 3 times a day, vitamin D 2000 units daily, thiamine 100 mg 1 pill twice daily, zinc 220 mg daily, and Pepcid 20 mg 1 pill twice daily. Patient will continue with CDC guidelines on isolation for at least 10 days. Recommend to continue with incentive spirometer, proning, and ambulation. Patient may need to limit his activities. Patient will continue with handwashing, facemask use, social distancing. Recommend follow-up with pulmonology in 1 week to follow-up this hospitalization. Pulmonology will help wean off medication and oxygen. Patient will need to establish care with a PCP to follow-up this hospitalization as well. Patient presented with acute renal injury. This is likely from dehydration. Renal function back to baseline. Patient had elevated liver function. Liver ultrasound shows fatty liver. This appears stable at this time. Recommend to recheck labCMP in 1 to 2 weeks to monitor his progress. Education on fatty liver provided. This can be further evaluated as an outpatient with the help of his PCP. Patient with new diabetes mellitus type 2. Hemoglobin A1c 9.0. Patient was started on Metformin and Lantus. At discharge patient will continue with current medicationMetformin 1000 mg 1 pill twice daily and Lantus. Recommend to monitor blood sugar daily. Recommend to maintain blood sugar less than 140 fasting and less than 200 after meals. Further adjustment in his medication may be required. This can be done with the help of his PCP. Patient will establish care locally to follow-up his care. Recommend to recheck hemoglobin A1c every 3 months to monitor his progress. Patient with chronic pain. Patient may take Tylenol or ibuprofen as needed. Patient with morbid obesity. BMI 54. Lifestyle modification education and weight loss will be important in the future. This can be done with the help of his PCP. Diet: ADA Activity: Ad sherry Followup: NONE,NONE [Primary Care Provider] - Time spent managing pt's care (in minutes): 55
--- NOTE | 2021-05-24 07:39 | RAD REPORT ---
EXAM DESCRIPTION: RAD - Chest Single View - 05/24/2021 5:14 am CLINICAL HISTORY: Follow-up Covidpneumonia COMPARISON: May 21 TECHNIQUE: AP portable chest image was obtained 05/24/2021 5:14 am . FINDINGS: Exam is significantly limited by very low lung volumes, lordotic positioning and significa nt body habitus affects. Bilateral interstitial and alveolar opacities are present not clearly different when adjusting for th e exam limitations. Heart and vasculature are normal. No measurable pleural effusion and no pneumothorax. No acute bony abnormality seen. No acute aortic findings suspected. IMPRESSION: Significantly limited examination showing a mild to moderate COVID-19 pneumonia pattern not substantially different when adjusting for the exam limitations. There is no evidence for improvement.
[2021-05-24] MEDS: FAMOTIDINE 20 MG TAB PO SCH (08:10)
[2021-05-24] MEDS: ASCORBIC ACID 500 MG TABLET PO SCH ×2 (08:10→13:02)
[2021-05-24] MEDS: THIAMINE HCL 100 MG TABLET PO SCH (08:11)
[2021-05-24] MEDS: VITAMIN D 1000 UNIT TAB PO SCH (08:11)
[2021-05-24] MEDS: ZINC SULFATE 220 MG CAP PO SCH (08:11)
[2021-05-24] MEDS: METHYLPREDNISOLONE 125 MG INJ IV SCH (08:11)
[2021-05-24] MEDS: ASPIRIN EC 81 MG TAB PO SCH (08:11)
[2021-05-24] MEDS: BARICITINIB 2 MG TABLET PO SCH (08:12)
[2021-05-24] MEDS: METFORMIN HCL 500 MG TAB PO SCH (08:12)
[2021-05-24] MEDS: INSULIN GLARGINE 100 UNITS/ML SQ SCH (08:12)
[2021-05-24] MEDS: INSULIN -REGULAR HUMAN 50 UNIT/0.5 ML ML SQ SCH ×2 (08:28→12:59)
[2021-05-24 13:00] VITALS: BP 121/74; TEMP 97.5
[2021-05-24 15:13] VITALS: O2SAT 95
== END 2021-05-24 14:15 | disposition home or self-care (01) | DRG 177 ==
LOC: ER 14:24 → ERHOLD 19:22 → 4TH 05-18 20:01
PROVIDERS: ADMIT Hospitalist; ATTEND Hospitalist
DX: U07.1 COVID-19 (principal); J12.82 Pneumonia due to coronavirus disease 2019; N17.9 Acute kidney failure, unspecified; Z68.43 Body mass index [BMI] 50.0-59.9, adult; E86.0 Dehydration; R79.89 Other specified abnormal findings of blood chemistry; K76.0 Fatty (change of) liver, not elsewhere classified; E66.01 Morbid (severe) obesity due to excess calories; G89.29 Other chronic pain; E11.9 Type 2 diabetes mellitus without complications
CPT/HCPCS: 36415; 71045; 76705; 80048; 80053; 80061; 80076; 82728; 82947; 83036; 83605; 83690; 83735; 83880; 84100; 84145; 84439; 84443; 84484; 85025; 85379; 85610; 85730; 86140; 87040; 94010; 94760; 96374; 97110; 97112; 97116; 97161; 97530; 99284; J1650; J1815; J2270; J2920; J2930; J7040

== ENCOUNTER 2021-06-24 16:22 | Inpatient (IN) | payer SELFPAY ==
--- NOTE | 2021-06-24 18:12 | RAD REPORT ---
EXAM DESCRIPTION: RAD - Chest Single View - 06/24/2021 5:54 pm CLINICAL HISTORY: DYSPNEA COMPARISON: Chest Single View dated 05/24/2021; Chest Single View dated 05/21/2021; Chest Single View dated 05/18/2021; Chest Single View dated 05/16/2021 FINDINGS: Lines: None. Lungs: Persistently low lung volumes with bilateral moderate airspace disease. Pleural: No significant pleural effusions or pneumothorax. Cardiac: Similar size and configuration Bones: No acute fractures. Other: IMPRESSION: Low lung volumes with moderate bilateral airspace disease without substantial change in consistent with multifocal pneumonia.
[2021-06-24 18:23] LABS: Absolute Lymphocytes (CBC) 1.5 K/uL (0.7-4.9); Basophils % 0.2 % (0-1.3); Hematocrit 41.1 % (39.6-49.0); Lymphocytes % 13.3 % (15.3-44.8); MPV 8.1 fL (7.6-11.3); RBC Red Blood Cell Count 4.65 M/uL (4.33-5.43)
[2021-06-24 18:27] LABS: Protime INR 1.18
[2021-06-24 18:28] LABS: ALT/SGPT 33 U/L (12-78); AST/SGOT 24 U/L (15-37); Albumin 2.9 g/dL (3.4-5.0); Alkaline Phosphatase 81 U/L (45-117); BUN Blood Urea Nitrogen 12 mg/dL (7-18); Bicarbonate 28 mmol/L (21-32); Bilirubin Direct 0.2 mg/dL (0-0.2); Bilirubin Total 0.6 mg/dL (0.2-1.0); Ferritin 584.5 ng/mL (26-388); Glucose Level 143 mg/dL (74-106); Lipase 59 U/L (73-393); Protein, Total 8.3 g/dL (6.4-8.2); Sodium Level 136 mmol/L (136-145); Troponin (Emerg Dept Use Only) < 0.02 ng/mL (0.0-0.045)
--- NOTE | 2021-06-24 19:16 | RAD REPORT ---
EXAM DESCRIPTION: CT - Chest For Pe Angio - 06/24/2021 6:57 pm CLINICAL HISTORY: DYSPNEA COMPARISON: Chest Single View dated 06/24/2021; Chest Single View dated 05/24/2021 FINDINGS: Chest Wall: No suspicious thyroid nodules or pathologic lymphadenopathy. Lungs: Moderate widespread bilateral ground-glass opacities. Pleura: No significant effusions or pneumothorax. Mediastinum/janina: No pathologic lymphadenopathy. Pulmonary arteries/Aorta: Limited evaluation due to motion. No central pulmonary embolus is identifie d. The segmental and subsegmental pulmonary arteries cannot be evaluated due to motion. No aortic ane urysm. Heart: No significant pericardial effusion. Normal heart size. Upper abdomen: No acute abnormality. Cholecystectomy. Bones: No acute abnormality. All CT scans are performed using dose optimization technique as appropriate and may include automated exposure control or mA/KV adjustment according to patient size. IMPRESSION: No central pulmonary embolus. Limited evaluation of the segmental and subsegmental pulmo nary arteries due to motion. Moderate bilateral airspace disease concerning for Covid-19 pneumonia.
--- NOTE | 2021-06-24 20:06 | ER ---
Nurse's Notes [facility] Name: Mohsen Emery Age: 35 yrs Sex: Male : 1985 Arrival Date: 06/24/2021 Time: 16:26 Bed 28 Private MD: Diagnosis: Hypoxia;Dyspnea Presentation: 06/24 17:04 Chief complaint: Patient states: Decreased O2 with exertion, down to high 70's and low jl7 80s, reports having COVID a month ago, discharged with home oxygen. Coronavirus screen: shortness of breath, Client presents with at least one sign or symptom that may indicate coronavirus-19. Standard/surgical mask placed on the client. Provider contacted for isolation considerations. Ebola Screen: No symptoms or risks identified at this time. Initial Sepsis Screen: Does the patient meet any 2 criteria? RR > 20 per min. HR > 90 bpm. Yes Does the patient have a suspected source of infection? No. Patient's initial sepsis screen is negative. Risk Assessment: Do you want to hurt yourself or someone else? Patient reports no desire to harm self or others. Onset of symptoms is unknown. 17:04 Method Of Arrival: Wheelchair jl7 17:04 Acuity: MARCO 2 jl7 Triage Assessment: 17:09 General: Appears in no apparent distress. uncomfortable, Behavior is calm, cooperative, jl7 appropriate for age. Pain: Complains of pain in chest and COOPER Pain currently is 8 out of 10 on a pain scale. Respiratory: Reports shortness of breath Onset: The symptoms/episode began/occurred gradually, the patient has moderate shortness of breath. Historical: - Allergies: 17:09 No Known Allergies; jl7 - Home Meds: 17:09 Metformin Oral [Active]; jl7 - PMHx: 17:09 Diabetes mellitus; jl7 - PSHx: 17:09 Appendectomy; Cholecystectomy; jl7 - Immunization history:: Client reports having NOT received the Covid vaccine. - Social history:: Smoking status: Patient denies any tobacco usage or history of. Screenin:46 Abuse screen: Denies threats or abuse. Nutritional screening: No deficits noted. oh Tuberculosis screening: No symptoms or risk factors identified. Fall Risk None identified. Assessment: 17:10 Reassessment: JUAN ANTONIO Roberson in triage assessing pt. jl7 17:45 General: Appears distressed, Behavior is calm, cooperative. Respiratory: Reports oh shortness of breath cough that is non-productive. 18:37 Respiratory: Airway is patent. oh 18:38 Respiratory: Respiratory effort is labored. oh 18:38 Cardiovascular:. Cardiovascular: Rhythm is sinus tachycardia. oh 18:38 Respiratory: Breath sounds are diminished bilaterally. oh 19:27 Reassessment: Pt sitting up in chair with eyes open, RR is even and unlabored, speaking bc5 in clear and complete sentences at this time, Pt has no complaints or requests. VSS, WCTM. 21:14 Reassessment: Walking SPO2 trial- Pt became tachypneic and SpO2 dropped to 85 with good bc5 wave form, tachycardia noted to be in 130's. 4 L NC. MARGAUX Henry aware. Vital Signs: 17:04 BP 134 / 76; Pulse 108; Resp 28; Temp 99.8; Pulse Ox 95% on 6 lpm NC; Weight 165.56 kg; jl7 Height 5 ft. 10 in. (177.80 cm); Pain 8/10; 18:51 BP 125 / 74; Pulse 91; Resp 25; Temp 99.0; Pulse Ox 99% on 2 lpm NC; oh 19:26 BP 120 / 78; Pulse 89; Resp 19; Temp 98.8(O); Pulse Ox 99% on 2 lpm NC; Pain 0/10; bc5 21:51 BP 101 / 61; Pulse 93; Resp 19; Temp 98.4(O); Pulse Ox 100% on 4 lpm NC; Pain 0/10; bc5 17:04 Body Mass Index 52.37 (165.56 kg, 177.80 cm) jl7 ED Course: 16:26 Patient arrived in ED. mr 17:09 Triage completed. jl7 17:09 Arm band placed on right wrist. jl7 17:10 Karol Henry FNP-C [facility]. kb 17:10 Patrice Jhaveri MD is Attending Physician. kb 17:16 Vladimir Garcia, JAYME is Primary Nurse. oh 17:44 BMP Sent. oh 17:45 Blood Culture Adult (2) Sent. oh 17:54 CXR XRAY In Process Unspecified. EDMS 18:35 Primary Nurse role handed off by Vladimir Garcia, JAYME bd 18:37 Vladimir Garcia, RN is Primary Nurse. oh 18:38 Bed in low position. Call light in reach. oh 18:39 No provider procedures requiring assistance completed. oh 18:39 Inserted saline lock: 20 gauge in right antecubital area, using aseptic technique. oh Blood collected. 18:57 CT Chest For PE Angio In Process Unspecified. EDMS 20:05 Saqib Rodriguez MD is Hospitalizing Provider. kb 21:45 Primary Nurse role handed off by Vladimir Garcia, RN bc5 21:45 Ankita Villaseñor, RN is Primary Nurse. bc5 Administered Medications: 20:39 Drug: SOLU-Medrol (methylPrednisoLONE) 125 mg Route: IVP; Site: right antecubital; dc2 21:51 Follow up: Response: Marked relief of symptoms bc5 Outcome: 20:05 Decision to Hospitalize by Provider. kb 06/25 18:33 Patient left the ED. ss Signatures: Dispatcher [employer] EDAR Karol Henry, FOOD PROCESSOR-C FOOD PROCESSOR-Ckb Maria Fernanda Lermaa Reema Stephanie Fowler, RN RN ss Davon Faye, RN RN jl7 Ankita Villaseñor, RN RN bc5 Yahaira Garcia, RN RN dc2 Vladimir Garcia, RN RN oh
--- NOTE | 2021-06-24 20:06 | EDPHYS ---
Physician Documentation [facility] Name: Mohsen Emery Age: 35 yrs Sex: Male : 1985 Arrival Date: 06/24/2021 Time: 16:26 Bed 28 Private MD: ED Physician Patrice Jhaveri HPI: 06/24 17:50 This 35 yrs old Male presents to ER via Wheelchair with complaints of kb Shortness Of Breath, Cough. 17:50 The patient has shortness of breath at rest. The patient has not recently seen a kb physician. 17:50 Onset: The symptoms/episode began/occurred yesterday. Duration: The symptoms are kb intermittent. The patient's shortness of breath is aggravated by coughing, exertion, light activity. Associated signs and symptoms: Pertinent positives: non-productive cough. Severity of symptoms: At their worst the symptoms were moderate in the emergency department the symptoms are unchanged. The patient has not experienced similar symptoms in the past. Pt reports he was admitted for covid and discharged on home oxygen a month ago. States he has had to increase his oxygen from 2L to 6L since discharge. States his oxygen drops to the high 70s/low 80s when he exerts himself at all and takes a while to come back up. Historical: - Allergies: 17:09 No Known Allergies; jl7 - Home Meds: 17:09 Metformin Oral [Active]; jl7 - PMHx: 17:09 Diabetes mellitus; jl7 - PSHx: 17:09 Appendectomy; Cholecystectomy; jl7 - Immunization history:: Client reports having NOT received the Covid vaccine. - Social history:: Smoking status: Patient denies any tobacco usage or history of. ROS: 17:49 Constitutional: Negative for fever, chills, and weight loss. kb 17:49 Respiratory: Positive for cough, dyspnea on exertion, shortness of breath, Negative for hemoptysis, orthopnea, pleurisy, sputum production, wheezing. 17:49 All other systems are negative. Exam: 17:49 Constitutional: This is a well developed, well nourished patient who is awake, alert, kb and in no acute distress. Head/Face: Normocephalic, atraumatic. ENT: Moist Mucous membranes Cardiovascular: Regular rate and rhythm with a normal S1 and S2. No gallops, murmurs, or rubs. No pulse deficits. Skin: Warm, dry with normal turgor. Normal color. MS/ Extremity: Pulses equal, no cyanosis. Neurovascular intact. Full, normal range of motion. Neuro: Awake and alert, GCS 15, oriented to person, place, time, and situation. Moves all extremities. Normal gait. Psych: Awake, alert, with orientation to person, place and time. Behavior, mood, and affect are within normal limits. 17:49 Respiratory: mild respiratory distress is noted, Respirations: labored breathing, that is mild, Breath sounds: decreased breath sounds, that are mild, are located in both bases. 18:28 ECG was reviewed by the Attending Physician. Vital Signs: 17:04 BP 134 / 76; Pulse 108; Resp 28; Temp 99.8; Pulse Ox 95% on 6 lpm NC; Weight 165.56 kg; jl7 Height 5 ft. 10 in. (177.80 cm); Pain 8/10; 18:51 BP 125 / 74; Pulse 91; Resp 25; Temp 99.0; Pulse Ox 99% on 2 lpm NC; oh 19:26 BP 120 / 78; Pulse 89; Resp 19; Temp 98.8(O); Pulse Ox 99% on 2 lpm NC; Pain 0/10; bc5 21:51 BP 101 / 61; Pulse 93; Resp 19; Temp 98.4(O); Pulse Ox 100% on 4 lpm NC; Pain 0/10; bc5 17:04 Body Mass Index 52.37 (165.56 kg, 177.80 cm) jl7 MDM: 17:11 Patient medically screened. kb 17:48 Data reviewed: vital signs, nurses notes. Data interpreted: Pulse oximetry: on 6L(s) kb per nasal canula, is 95 %. Interpretation: acceptable. 17:49 Differential diagnosis: pneumonia, pulmonary edema, Pulmonary Embolism. kb 19:32 Counseling: I had a detailed discussion with the patient and/or guardian regarding: the historical points, exam findings, and any diagnostic results supporting the discharge/admit diagnosis, lab results, radiology results, the need for further work-up and treatment in the hospital. 20:04 Physician consultation: Saqib Rodriguez MD was called at 19:50, regarding admission, to the telemetry unit. patient's condition, voicemail left, awaiting callback. 06/24 17:10 Order name: BMP kb 06/24 17:10 Order name: Blood Culture Adult (2) kb 06/24 17:10 Order name: C-Reactive Protein; Complete Time: 18:28 kb 06/24 17:10 Order name: CBC with Diff; Complete Time: 18:28 kb 06/24 17:10 Order name: Ferritin; Complete Time: 18:28 kb 06/24 17:10 Order name: LFT's; Complete Time: 18:28 kb 06/24 17:10 Order name: Lactate; Complete Time: 18:13 kb 06/24 17:10 Order name: Lipase; Complete Time: 18:28 kb 06/24 17:10 Order name: PT-INR; Complete Time: 18:42 kb 06/24 17:10 Order name: Procalcitonin; Complete Time: 18:51 kb 06/24 17:10 Order name: Ptt, Activated; Complete Time: 18:42 kb 06/24 17:10 Order name: Troponin (emerg Dept Use Only); Complete Time: 18:28 kb 06/24 17:11 Order name: Basic Metabolic Panel; Complete Time: 18:28 EDMS 06/24 17:10 Order name: CXR XRAY; Complete Time: 18:13 kb 06/24 17:10 Order name: EKG; Complete Time: 17:11 kb 06/24 17:10 Order name: Cardiac monitoring; Complete Time: 17:45 kb 06/24 17:10 Order name: Droplet/Contact Precautions; Complete Time: 17:45 kb 06/24 17:10 Order name: EKG - Nurse/Tech; Complete Time: 17:45 kb 06/24 17:10 Order name: IV Start; Complete Time: 17:45 kb 06/24 17:10 Order name: Labs collected and sent; Complete Time: 17:45 kb 06/24 17:10 Order name: CT Chest For PE Angio; Complete Time: 19:19 kb 06/24 17:11 Order name: Blood Culture EDMS 06/24 19:17 Order name: SARS-COV-2 RT PCR; Complete Time: 19:19 EDMS 06/25 06:04 Order name: CBC with Automated Diff EDMS 06/25 06:09 Order name: Basic Metabolic Panel EDMS 06/25 08:10 Order name: Glucose, Ancillary Testing EDAR 06/25 11:45 Order name: Glucose, Ancillary Testing EDAR 06/25 16:43 Order name: Glucose, Ancillary Testing EDAR 06/24 17:10 Order name: O2 Per Protocol; Complete Time: 17:45 kb 06/24 17:10 Order name: O2 Sat Monitoring; Complete Time: 17:45 kb EC:28 Rate is 111 beats/min. Rhythm is regular. QRS [place] is Normal. OH interval is normal at kb 124 msec. QRS interval is normal at 90 msec. QT interval is normal at 342 msec. Administered Medications: 20:39 Drug: SOLU-Medrol (methylPrednisoLONE) 125 mg Route: IVP; Site: right antecubital; dc2 21:51 Follow up: Response: Marked relief of symptoms bc5 Disposition: 06/25 07:20 Co-signature as Attending Physician, Patrice Jhaveri MD I agree with the assessment and rn plan of care. Attestation: The patient's history, exam findings, diagnostics, and a summary of any interventions or procedures was reviewed in detail with Karol GALVAN. Disposition Summary: 06/24/21 20:05 Hospitalization Ordered Provider: Saqib Rodriguez Condition: Stable kb Problem: new kb Symptoms: are unchanged kb Bed/Room Type: Standard Hospitalization Status: Inpatient Admission(06/25/21 16:39) bd Location: Telemetry/MedSurg (Inpatient)(06/25/21 16:39) bd Room Assignment: [facility](06/25/21 16:39) bd Diagnosis - Hypoxia kb - Dyspnea kb Forms: - Medication Reconciliation Form kb - SBAR form kb Signatures: Dispatcher [employer] Karol Quick FNP-C FNP-CkMaria Fernanda Argueta Roman, MD MD rn Garcia, Cindy, RN RN Davon Agudelo RN RN jl7 Yahaira Garcia RN RN dc2 Ankita Villaseñor RN bc5 Corrections: (The following items were deleted from the chart) 06/24 17:49 17:48 Data interpreted: Pulse oximetry: on room air is 95 %. Interpretation: normal. kb kb 18:00 17:11 CORONAVIRUS+MR.LAB.BRZ ordered. [facility] EDAR 20:48 20:05 Telemetry/MedSurg (observation) kb cg 20:48 20:05 kb cg 06/25 16:39 06/24 20:05 Observation kb bd 06/25 16:39 06/24 20:[address] [facility] ER HOLD cg bd 06/25 16:39 06/24 20:48 ERHOLD- cg bd
[2021-06-24] MEDS ORDERED: METHYLPREDNISOLONE 125 MG INJ ONE ×2 (20:42→21:01)
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
[2021-06-24] MEDS ORDERED: D50W 25 GM/50 ML SYRINGE IV PRN (22:14)
[2021-06-24] MEDS ORDERED: GLUCAGON 1 MG/VIAL IM PRN (22:14)
[2021-06-24] MEDS: ACETAMINOPHEN 500 MG TAB PO PRN (23:50)
[2021-06-25 00:04] VITALS: BMI 53.1
[2021-06-25] MEDS ORDERED: ACETAMINOPHEN 500 MG TAB ONE (00:13)
[2021-06-25 05:56] LABS: Basophils % 0.3 % (0-1.3); Hematocrit 39.9 % (39.6-49.0); Lymphocytes % 13.1 % (15.3-44.8); MPV 8.3 fL (7.6-11.3); RBC Red Blood Cell Count 4.54 M/uL (4.33-5.43)
[2021-06-25 06:08] LABS: BUN Blood Urea Nitrogen 14 mg/dL (7-18); Bicarbonate 28 mmol/L (21-32); Glucose Level 284 mg/dL (74-106); Potassium 4.6 mmol/L (3.5-5.1); Sodium Level 135 mmol/L (136-145)
[2021-06-25] MEDS: INSULIN -REGULAR HUMAN 50 UNIT/0.5 ML ML SQ SCH ×4 (07:30→20:33)
[2021-06-25] MEDS: ASCORBIC ACID 500 MG TABLET PO SCH ×3 (09:00→20:30)
[2021-06-25] MEDS: ASPIRIN EC 81 MG TAB PO SCH (09:00)
[2021-06-25] MEDS: ZINC SULFATE 220 MG CAP PO SCH (09:00)
[2021-06-25] MEDS: VITAMIN D 1000 UNIT TAB PO SCH (09:00)
[2021-06-25] MEDS: METHYLPREDNISOLONE 40 MG INJ IV SCH ×2 (09:00→20:32)
[2021-06-25] MEDS: FAMOTIDINE 20 MG TAB PO SCH ×2 (09:00→20:30)
[2021-06-25] MEDS: METFORMIN HCL 500 MG TAB PO SCH ×2 (09:00→20:32)
[2021-06-25] MEDS: THIAMINE HCL 100 MG TABLET PO SCH ×2 (09:00→20:34)
[2021-06-25] MEDS ORDERED: ASPIRIN EC 81 MG TAB PO ONE (09:14)
[2021-06-25] MEDS ORDERED: THIAMINE HCL 100 MG TABLET ONE (09:14)
[2021-06-25] MEDS ORDERED: ASCORBIC ACID 500 MG TABLET ONE ×2 (09:14→13:27)
[2021-06-25] MEDS ORDERED: METHYLPREDNISOLONE 40 MG INJ ONE (09:15)
[2021-06-25] MEDS ORDERED: VITAMIN D 1000 UNIT TAB ONE (09:15)
[2021-06-25] MEDS ORDERED: ZINC SULFATE 220 MG CAP ONE (09:15)
[2021-06-25] MEDS ORDERED: INSULIN -REGULAR HUMAN 50 UNIT/0.5 ML ML ONE (09:15)
[2021-06-25] MEDS ORDERED: FAMOTIDINE 20 MG TAB ONE (09:15)
--- NOTE | 2021-06-25 10:24 | EKG ---
Test Date: 2021-06-24 Test Time: 17:31:07 Senior Environmental Technician: PAUL MEASUREMENT RESULTS: Intervals: Rate: 111 [place]: 124 QRSD: 90 QT: 342 QTc: 465 [place]: P: 42 [place]: 124 QRS: 11 T: 29 INTERPRETIVE STATEMENTS: Sinus tachycardia Otherwise normal ECG Compared to ECG 05/14/2021 23:45:30 Myocardial infarct finding no longer present Electronically Signed On 06-25-21 10:21:59 CDT by Jose Alejandro Tran
[2021-06-25] MEDS ORDERED: GLUCAGON 1 MG/VIAL IM PRN (13:17)
[2021-06-25] MEDS ORDERED: D50W 25 GM/50 ML SYRINGE IV PRN (13:17)
--- NOTE | 2021-06-25 13:24 | P.PN ---
Subjective Date of Service: 06/25/21 Primary Care Provider: Michael Chief Complaint: long covid Subjective: No new changes, Improving Patient seems more comfortable today Review of Systems 10-point ROS is otherwise unremarkable Respiratory: SOB with Excertion Physical Examination - Vital Signs Temperature: 97.9 F Blood Pressure: 128/74 Pulse: 90 Respirations: 19 Pulse Ox (%): 100 - Physical Exam General: Alert, In no apparent distress HEENT: Atraumatic, PERRLA, EOMI Neck: Supple, JVD not distended Respiratory: Clear to auscultation bilaterally, Normal air movement Cardiovascular: Regular rate/rhythm, Normal S1 S2 Gastrointestinal: Normal bowel sounds, No tenderness Musculoskeletal: No tenderness Integumentary: No rashes Neurological: Normal speech, Normal tone, Normal affect Lymphatics: No axilla or inguinal lymphadenopathy - Studies Laboratory Data (last 24 hrs) 06/24/21 17:40: PT 13.6 H, INR 1.18, APTT 31.5 06/24/21 17:40: WBC 11.50 H, Hgb 14.0, Hct 41.1, Plt Count 276 06/24/21 17:40: Sodium 136, Potassium 4.0, BUN 12, Creatinine 0.76, Glucose 143 H, Total Bilirubin 0.6, AST 24, ALT 33, Alkaline Phosphatase 81, Lipase 59 L Assessment & Plan - Problems (Diagnosis) (1) Long COVID Current Visit: Yes Status: Acute Plan: will start the patient of steroids and oxygen. Will try daily to wean the patient down off the oxygen. He is currently resting comfortable on 6lts 06/25 Patient is improving More comfortable. Will start weaning him. See if can get him home in a few days on Nasal oxygen (2) Long COVID Current Visit: Yes Status: Acute (3) DM2 (diabetes mellitus, type 2) Current Visit: Yes Status: Acute Plan: will restart the metformin with insulin for sliding scale. 06/25 Have started metformin. Will order a sliding scale. Hold off on medications. He will have secondary elevations of his glucose due to the steroids he is on. Qualifiers: Diabetes mellitus snf insulin use: without snf use Diabetes mellitus complication status: without complication Qualified Code(s): E11.9 - Type 2 diabetes mellitus without complications Discharge Plan: Home Plan to discharge in: 48 Hours - Code Status/Comfort Care Code Status Assessed: No Physician Review: Patient Assessed, Agree with Above Assessment and Plan Critical Care: No Time Spent Managing Pts Care (In Minutes): 20
[2021-06-25] MEDS ORDERED: INSULIN -REGULAR HUMAN 50 UNIT/0.5 ML ML SQ SCH (16:30)
[2021-06-26] MEDS: ACETAMINOPHEN 500 MG TAB PO PRN (04:16)
[2021-06-26] MEDS: VITAMIN D 1000 UNIT TAB PO SCH (08:41)
[2021-06-26] MEDS: ASPIRIN EC 81 MG TAB PO SCH (08:41)
[2021-06-26] MEDS: ASCORBIC ACID 500 MG TABLET PO SCH (08:41)
[2021-06-26] MEDS: METHYLPREDNISOLONE 40 MG INJ IV SCH (08:41)
[2021-06-26] MEDS: METFORMIN HCL 500 MG TAB PO SCH (08:42)
[2021-06-26] MEDS: FAMOTIDINE 20 MG TAB PO SCH (08:42)
[2021-06-26] MEDS: THIAMINE HCL 100 MG TABLET PO SCH (08:42)
[2021-06-26] MEDS: ZINC SULFATE 220 MG CAP PO SCH (08:42)
[2021-06-26] MEDS: INSULIN -REGULAR HUMAN 50 UNIT/0.5 ML ML SQ SCH ×2 (08:42→12:51)
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
[2021-06-26 13:36] VITALS: BP 123/65; TEMP 97
[2021-06-26 13:37] VITALS: O2SAT 98
== END 2021-06-26 14:15 | disposition home or self-care (01) | DRG 204 ==
LOC: ER 16:22 → ERHOLD 20:57 → 4TH 06-25 17:21
PROVIDERS: ADMIT Internal Medicine; ATTEND Internal Medicine
DX: R06.02 Shortness of breath (principal); B94.8 Sequelae of other specified infectious and parasitic diseases; E11.9 Type 2 diabetes mellitus without complications; Z20.822 Contact with and (suspected) exposure to COVID-19
CPT/HCPCS: 36415; 71045; 71275; 80048; 80076; 82728; 82947; 83605; 83690; 84145; 84484; 85025; 85610; 85730; 86140; 87040; 93005; 96374; 99284; J2920; J2930; Q9967; U0003

== ENCOUNTER 2022-04-30 17:20 | Emergency (ER) | payer SELFPAY ==
[2022-04-30] MEDS ORDERED: IBUPROFEN 400 MG TAB ONE (20:05)
[2022-04-30] MEDS ORDERED: HYDROCODONE/APAP 10/325 TAB ONE (20:06)
--- NOTE | 2022-04-30 20:09 | RAD REPORT ---
EXAM DESCRIPTION: RAD - Ankle Left 3 View - 04/30/2022 7:35 pm CLINICAL HISTORY: PAIN COMPARISON: No comparisons FINDINGS: No fracture or dislocation is seen.
--- NOTE | 2022-04-30 20:09 | RAD REPORT ---
EXAM DESCRIPTION: RAD - Tib Fib Left - 04/30/2022 7:35 pm CLINICAL HISTORY: PAIN COMPARISON: No comparisons FINDINGS: No fracture or dislocation seen.
--- NOTE | 2022-04-30 20:09 | RAD REPORT ---
EXAM DESCRIPTION: RAD - Knee Left 3 View - 04/30/2022 7:35 pm CLINICAL HISTORY: PAIN COMPARISON: No comparisons FINDINGS: Mild medial compartment space narrowing is seen compatible with mild osteoarthritis. No fr acture, dislocation or joint effusion.
--- NOTE | 2022-04-30 20:10 | RAD REPORT ---
EXAM DESCRIPTION: RAD - Foot Left 3 View - 04/30/2022 7:35 pm CLINICAL HISTORY: PAIN COMPARISON: No comparisons FINDINGS: No fracture or dislocation suspected. Tiny calcaneal spurs.
--- NOTE | 2022-04-30 20:57 | ER ---
Nurse's Notes [facility] Name: Mohsen Emery Age: 36 yrs Sex: Male : 1985 Arrival Date: 04/30/2022 Time: 17:22 Bed 11 Private MD: Diagnosis: Contusion of left lower leg;Abrasion of lower leg-left;Contusion of left ankle;Contusion of left foot Presentation: 04/30 17:57 Chief complaint: Patient states: PATIENT REPORTS A 200LB ROCK FALLING APPROXIMATELY 20 bh1 FEET ONTO HIS LEFT LOWER LEG AND ANKLE A COUPLE HOURS AGO. Coronavirus screen: Vaccine status: Patient reports being unvaccinated. At this time, the client does not indicate any symptoms associated with coronavirus-19. Ebola Screen: Patient negative for fever greater than or equal to 101.5 degrees Fahrenheit, and additional compatible Ebola Virus Disease symptoms. Initial Sepsis Screen: Does the patient meet any 2 criteria? No. Patient's initial sepsis screen is negative. Does the patient have a suspected source of infection? No. Patient's initial sepsis screen is negative. Risk Assessment: Do you want to hurt yourself or someone else? Patient reports no desire to harm self or others. Onset of symptoms was April 30, 2022. 17:57 Method Of Arrival: Wheelchair [facility] 17:57 Acuity: MARCO 4 bh1 Triage Assessment: 17:59 General: Appears in no apparent distress. uncomfortable, Behavior is calm, cooperative, bh1 appropriate for age. Pain: Complains of pain in left leg. Musculoskeletal: Reports pain in left leg. Injury Description: Abrasion sustained to left leg. Historical: - Allergies: 17:59 NKDA; 1 - Home Meds: 17:59 Metformin Oral [Active]; 1 - PMHx: 17:59 diabetes mellitus; [facility] - PSHx: 17:59 Appendectomy; Cholecystectomy; 1 - Immunization history:: Adult Immunizations up to date. - Social history:: Smoking status: Patient denies any tobacco usage or history of. Screenin:38 Abuse screen: Denies threats or abuse. Nutritional screening: No deficits noted. bb Tuberculosis screening: No symptoms or risk factors identified. Fall Risk None identified. Assessment: 20:38 General: Appears in no apparent distress. uncomfortable, Behavior is calm, cooperative. bb Neuro: Level of Consciousness is awake, alert, obeys commands, Oriented to person, place, time, situation. Cardiovascular: Capillary refill < 3 seconds Patient's skin is warm and dry. Respiratory: Respiratory effort is even, unlabored. GI: No signs and/or symptoms were reported involving the gastrointestinal system. Derm: Skin is pink, warm \T\ dry. Musculoskeletal: Circulation, motion, and sensation intact. Reports pain in left leg. Vital Signs: 17:57 BP 137 / 87; Pulse 79; Resp 20; Temp 98.4; Pulse Ox 99% on R/A; Weight 165.56 kg; bh1 Height 5 ft. 10 in. (177.80 cm); Pain 7/10; 21:41 BP 128 / 78; Pulse 81; Resp 20; Pulse Ox 99% on R/A; bh1 17:57 Body Mass Index 52.37 (165.56 kg, 177.80 cm) 1 ED Course: 17:22 Patient arrived in ED. as 17:31 Magdi Oliveira PA is PHCP. cp 17:31 Magdi Rogers MD is Attending Physician. cp 17:59 Triage completed. bh1 18:00 Arm band placed on right wrist. bh1 19:36 Ankle Left 3 View XRAY In Process Unspecified. EDMS 19:37 Tib Fib Left XRAY In Process Unspecified. EDMS 19:37 XRAY Foot LEFT 3 View In Process Unspecified. EDMS 19:37 XRAY Knee LEFT 3 view In Process Unspecified. EDMS 20:37 Yoselin Mayers, RN is Primary Nurse. bb 20:38 Patient has correct armband on for positive identification. bb 20:55 Vik Carlos MD is Referral Physician. cp 21:00 Johnson Iglesias MD is Attending Physician. cp 21:41 No provider procedures requiring assistance completed. Patient did not have IV access [facility] during this emergency room visit. 21:42 Crutch training done. Orthoglass splint: Posterior long leg splint applied on left leg. 1 Administered Medications: 20:00 Drug: HYDROcodone-acetaminophen 10 mg-325 mg 1 tabs Route: PO; 1 21:41 Follow up: Response: No adverse reaction [facility] 20:00 Drug: Ibuprofen 800 mg Route: PO; 1 21:41 Follow up: Response: No adverse reaction [facility] Medication: 20:38 VIS not applicable for this client. bb Outcome: 20:56 Discharge ordered by . cp 21:42 Discharged to home via wheelchair, with crutches, with family. [facility] 21:42 Condition: good 21:42 Discharge instructions given to patient, family, Instructed on discharge instructions, follow up and referral plans. medication usage, crutch walking, Demonstrated understanding of instructions, follow-up care, medications, crutch walking, splint care, Prescriptions given X 2. 21:42 Patient left the ED. [facility] Signatures: Dispatcher [employer] Linda Gaines Brenda, RN RN bb Magdi Oliveira PA PA cp Hicks, Barbara, RN RN [facility]
--- NOTE | 2022-04-30 20:57 | EDPHYS ---
Physician Documentation [facility] Name: Mohsen Emery Age: 36 yrs Sex: Male : 1985 Arrival Date: 04/30/2022 Time: 17:22 Bed 11 Private MD: ED Physician Johnson Iglesias HPI: 04/30 18:05 This 36 yrs old Male presents to ER via Wheelchair with complaints of Leg cp Injury. 18:05 The patient presents with an abrasion, a contusion, an injury. The complaints affect cp the left knee and left lower leg and left ankle. 18:05 Context: resulted from a direct blow, approximate 200lb rock, the patient can fully cp bear weight, the patient is able to ambulate, with moderate difficulty. Onset: The symptoms/episode began/occurred today. Associated signs and symptoms: Pertinent positives: swelling, abrasions, Pertinent negatives numbness. 18:05 Treatment prior to arrival includes: no previous treatment. Patient reports he was at cp work today when approximate 200lb rock struck left knee and left lower leg. Historical: - Allergies: 17:59 NKDA; 1 - Home Meds: 17:59 Metformin Oral [Active]; 1 - PMHx: 17:59 diabetes mellitus; [facility] - PSHx: 17:59 Appendectomy; Cholecystectomy; [facility] - Immunization history:: Adult Immunizations up to date. - Social history:: Smoking status: Patient denies any tobacco usage or history of. ROS: 18:10 Constitutional: Negative for body aches, chills, fever, poor PO intake. cp 18:10 Eyes: Negative for injury, pain, redness, and discharge. cp 18:10 ENT: Negative for drainage from ear(s), ear pain, sore throat, difficulty swallowing, difficulty handling secretions. 18:10 Cardiovascular: Negative for chest pain, palpitations. 18:10 Respiratory: Negative for cough, shortness of breath, wheezing. 18:10 Abdomen/GI: Negative for abdominal pain, nausea, vomiting, and diarrhea. 18:10 Back: Negative for pain at rest, pain with movement. 18:10 MS/extremity: Positive for abrasion, ecchymosis, pain, swelling, tenderness, of the left knee and left lower leg and left ankle and left foot, Negative for decreased range of motion, paresthesias. 18:10 Skin: Positive for abrasion(s), ulceration, of the left lower leg. 18:10 Neuro: Negative for altered mental status, dizziness, headache, numbness, weakness. 18:10 All other systems are negative. Exam: 18:15 Constitutional: The patient appears in no acute distress, alert, awake, cp non-diaphoretic, non-toxic, well developed, well nourished, obese. 18:15 Head/Face: Normocephalic, atraumatic. cp 18:15 Neck: C-spine: vertebral tenderness, is not appreciated, crepitus, is not appreciated, ROM/movement: is normal, is supple, without pain, no range of motions limitations. 18:15 Chest/axilla: Inspection: normal. 18:15 Cardiovascular: Rate: normal. 18:15 Respiratory: the patient does not display signs of respiratory distress, Respirations: normal, no use of accessory muscles, no retractions, labored breathing, is not present. 18:15 Abdomen/GI: Exam negative for discomfort, distension, guarding, Inspection: obese 18:15 Back: pain, is absent, ROM is normal. 18:15 Musculoskeletal/extremity: Extremities: grossly normal except: noted in the left lower leg: ecchymosis, swelling, tenderness, There is no evidence of deformity, noted in the left foot: tenderness, Pulses: noted to be 2+ in the left dorsalis pedis artery, the left foot and left leg Sensation intact. Compartment Syndrome exam of affected extremity: the left lower leg no numbness, no tingling, no sensation deficit, no palor, no weak pulses, Joints: the left knee displays tenderness, the left ankle displays painful range of motion, tenderness, lateral malleolus swelling. Vital Signs: 17:57 BP 137 / 87; Pulse 79; Resp 20; Temp 98.4; Pulse Ox 99% on R/A; Weight 165.56 kg; 1 Height 5 ft. 10 in. (177.80 cm); Pain 7/10; 21:41 BP 128 / 78; Pulse 81; Resp 20; Pulse Ox 99% on R/A; bh1 17:57 Body Mass Index 52.37 (165.56 kg, 177.80 cm) [facility] MDM: 20:35 Patient medically screened. cp 20:55 Data reviewed: vital signs, nurses notes, radiologic studies, plain films. 20:55 Test interpretation: by ED physician or midlevel provider: plain radiologic studies. cp Counseling: I had a detailed discussion with the patient and/or guardian regarding: the historical points, exam findings, and any diagnostic results supporting the discharge/admit diagnosis, radiology results, the need for outpatient follow up, a family practitioner, a orthopedic surgeon, to return to the emergency department if symptoms worsen or persist or if there are any questions or concerns that arise at home. 20:55 Response to treatment: the patient's symptoms have markedly improved after treatment, cp Pain improved with meds. Patient placed in posterior long leg splint, crutches given. Will discharge to home for continued monitoring. 04/30 17:57 Order name: Ankle Left 3 View XRAY; Complete Time: 20:35 [facility] 04/30 20:35 Interpretation: Report reviewed. 04/30 17:57 Order name: Tib Fib Left XRAY; Complete Time: 20:35 [facility] 04/30 20:35 Interpretation: Report reviewed. cp 04/30 18:14 Order name: XRAY Foot LEFT 3 View; Complete Time: 20:35 cp 04/30 20:35 Interpretation: Reviewed report. cp 04/30 18:14 Order name: XRAY Knee LEFT 3 view; Complete Time: 20:35 cp 04/30 20:36 Interpretation: Report reviewed. 04/30 19:36 Order name: Crutches; Complete Time: 21:41 cp 04/30 19:36 Order name: Splint: long leg; Complete Time: 21:41 cp Administered Medications: 20:00 Drug: HYDROcodone-acetaminophen 10 mg-325 mg 1 tabs Route: PO; [facility] 21:41 Follow up: Response: No adverse reaction [facility] 20:00 Drug: Ibuprofen 800 mg Route: PO; [facility] 21:41 Follow up: Response: No adverse reaction [facility] Disposition Summary: 04/30/22 20:56 Discharge Ordered Location: Home cp Problem: new cp Symptoms: have improved cp Condition: Stable cp Diagnosis - Contusion of left lower leg cp - Abrasion of lower leg - left cp - Contusion of left ankle cp - Contusion of left foot cp Followup: cp - With: Vik Carlos MD - When: 2 - 3 days - Reason: Recheck today's complaints Discharge Instructions: - Discharge Summary Sheet cp - Abrasion cp - Contusion cp - Foot Contusion cp Forms: - Medication Reconciliation Form cp - Thank You Letter cp - Antibiotic Education cp - Prescription Opioid Use cp Prescriptions: - Ibuprofen 800 mg Oral Tablet - take 1 tablet by ORAL route every 8 hours As needed take with food; 30 tablet; cp Refills: 0, Product Selection Permitted - Tylenol-Codeine #3 300 mg-30 mg Oral - take 2 tablet by ORAL route every 8-10 hours; 14 tablet; Refills: 0, Product cp Selection Permitted Addendum: 05/05/2022 19:35 Co-signature as Attending Physician, Johnson Iglseias MD I agree with the assessment and k dr plan of care. Signatures: Dispatcher [employer] EDMS Johnson Iglesias MD MD [facility] Magdi Oliveira PA PA cp Maria Fernanda Chandler RN RN bh1 Corrections: (The following items were deleted from the chart) 05/01 18:04 04/30 20:55 Counseling: I had a detailed discussion with the patient and/or guardian cp regarding: the historical points, exam findings, and any diagnostic results supporting the discharge/admit diagnosis, radiology results, the need for outpatient follow up, a family practitioner, to return to the emergency department if symptoms worsen or persist or if there are any questions or concerns that arise at home, cp
[2022-04-30 23:29] VITALS: TEMP 98.4; O2SAT 99
[2022-04-30 23:32] VITALS: BP 128/78
== END 2022-04-30 21:42 | disposition home or self-care (01) ==
LOC: ER 17:20
DX: S80.812A Abrasion, left lower leg, initial encounter (principal); S80.12XA Contusion of left lower leg, initial encounter; S90.02XA Contusion of left ankle, initial encounter; S90.32XA Contusion of left foot, initial encounter; E11.9 Type 2 diabetes mellitus without complications
CPT/HCPCS: 99284